=== PATIENT | female | born 1955 | race Caucasian/White ===

== ENCOUNTER 2023-12-26 13:46 | Inpatient (IN) | payer OTHER, SELFPAY ==
[2023-12-25 18:53] VITALS: BP 101/73
[2023-12-25 18:56] LABS: Glucose - Point of Care 170 mg/dl (70-99)
[2023-12-25 19:10] LABS: % Basophils 0.5 % (0-2); % Eosinophils 2.5 % (0-6); % Immature Granulocytes 0.5 % (0-0.5); % Lymphocytes 22.6 % (20.5-51.1); % Monocytes 7.4 % (1.7-9.3); % Neutrophils 66.5 % (42.2-75.2); Absolute Eosinophils 0.2 10^3/uL (0-0.7); Absolute Lymphocytes 1.4 10^3/uL (1.2-3.4); Absolute Monocytes 0.5 10^3/uL (0.1-0.6); Absolute Neutrophils 4.3 10^3/uL (1.4-6.5); Hematocrit 23.3 % (37.0-47.0); Mean Corp Hgb Conc. 34.3 g/dL (33.0-37.0); Mean Corpuscular Hgb 30.1 pg (27.0-31.0); Mean Corpuscular Volume 87.6 fL (81.0-99.0); Mean Platelet Volume 9.6 fL (7.4-10.4); Nucleated Red Blood Cells % 0 %; Platelet Count 267 10^3/uL (130-400); Red Blood Cell Count 2.66 10^6/uL (4.20-5.40); Red Cell Dist. Width 14.7 % (11.5-14.5); White Blood Cell Count 6.4 10^3/uL (4.8-10.8)
[2023-12-25 19:30] LABS: NT-proBNP 7000 pg/ml
[2023-12-25 19:35] LABS: ALT (SGPT) 31 U/L (0-35); AST (SGOT) 29 U/L (14-36); Albumin 4.4 g/dl (3.5-5.0); Alkaline Phosphatase 72 U/L (38-126); Blood Urea Nitrogen 57 mg/dl (7-17); Calcium 9.7 mg/dl (8.4-10.2); Carbon Dioxide 21 mmol/L (22-30); Chloride 104 mmol/L (98-107); Glucose 158 mg/dl (70-99); Potassium 4.7 mmol/L (3.5-5.1); Sodium 140 mmol/L (135-145); Total Bilirubin 0.2 mg/dl (0.2-1.3); Total Protein 6.9 g/dl (6.3-8.2); eGFR 45.35
[2023-12-25 21:09] VITALS: BP 197/64
[2023-12-25 21:14] VITALS: BP 197/64
[2023-12-25 21:19] LABS: Glucose - Point of Care 33 mg/dl (70-99)
[2023-12-25 21:20] VITALS: BMI 23.3
[2023-12-25 21:21] VITALS: BP 210/66
[2023-12-25 21:37] LABS: Glucose - Point of Care 49 mg/dl (70-99)
[2023-12-25 21:54] LABS: Glucose - Point of Care 72 mg/dl (70-99)
--- NOTE | 2023-12-25 21:55 | EDRN ---
Pt brought in by daughter for memory issues. Daughter states pt had a back injury with surgery @ [facility] in September and has been in and out of the hospital since then. Pt has been prescribed percocet and morphine extended release since then.
Daughter said the past few days pt has been confused, not remembering things, possibly not taking her medications/overtaking her medications. Pt has at times been agressive too which daughter states is not like her. Daughter thinks she may be in
withdrawl from opiates too, has not taken any today.
[2023-12-25 22:00] VITALS: BP 155/64
--- NOTE | 2023-12-25 22:17 | ED.GENMED ---
History of Present Illness
General
Chief Complaint: Change in Mental Status
Source: patient and family (Daughter)
Exam Limitations: altered mental status
Time Seen by Provider: 12/25/23 22:03
Nursing documentation reviewed up to this point in time: agreed with
History of Present Illness
History of Present Illness:
68-year-old female with confusion, intermittently. Daughter states that her blood sugars have been high. She has been to [facility] multiple times, and has been placed on Percocet and morphine. She had a spine surgery about 6 months ago. No
fevers. She has a history of coronary artery disease. All of her procedures have been at [facility]. No current records with patient.
Past History
Past History
ED Past Medical History: CAD, HTN, Hypercholesterolemia and IDDM
ED Past Surgical History: Appendectomy, Cardiac (Cardiac stents), and Orthopedic (Back surgery)
Review of Systems
Review of Systems
Allergies reviewed?: Yes
Unable to obtain full review of systems at this time due to: other (Confusion)
Other source history: family
All Other Systems: Not applicable
Constitutional: Reports no symptoms
EENT: Reports no symptoms
Musculoskeletal: Reports edema
Endocrine: Reports other (Confusion)
Phy Exam
Physical Exam
Physical Exam:
Physical Exam
General: Afebrile
Neck: supple. no meningeal signs. normal posterior pharynx
Heart: s1/s2 regular rate and rhythm, no murmur. equal radial
pulses.
HEENT: Pupils equal round reactive to light, EOMI
Lungs: no acute respiratory distress. clear bilaterally
Abdomen: normal bowel sounds. not tender. no CVAT
Neuro: alert and oriented to person and place. no focal neurological deficits cranial nerves II through XII intact
Skin: no rash
Psychiatric: well kept. interactive and cooperative
Extremities: Right lower leg edema. no calf tenderness. negative homans. good distal pulses
Course
Orders/Labs/Results
Orders:
Orders
12/25/23 19:04
BNP [NT-proBNP] Urgent
CBC/With Diff [Complete Blood Count/With Diff] Urgent
CMP [Comprehensive Metabolic Panel] Urgent
Troponin I Urgent
Comment: ADD ON
12/25/23 22:13
IV Insert/Care/Rem.- Treatment PRN
12/25/23 22:14
Add On- LAB Urgent
Tests Added?: troponin
CR Chest - 2 Views Urgent
Comment:
Reason For Exam: leg swelling, confusion, elevated bnp
12/25/23 22:22
Electrocardiogram (*1) Stat
Reason for Study: Heart Failure, Left
Electrocardiogram (*1) Urgent
Reason for Study: Fatigue / Weakness
EKG- Treatment ONCE
12/25/23 23:18
Drug Screen, Urine [Urine Drug Abuse Screen] Urgent
Date Specimen was Collected: 12/25/23
Time Specimen was Collected: 23:15
Urinalysis Reflex To Culture Urgent
Date Specimen was Collected: 12/25/23
Time Specimen was Collected: 23:15
Urine Microscopic Reflex Cult Urgent
12/26/23 00:01
CT Head W/o Iv Contrast Urgent
Reason For Exam: altered mental status
Abnormal Lab Results
12/25/23 12/25/23 12/25/23
18:55 19:04 21:17
RBC 2.66 L 10^6/uL
(4.20-5.40)
Hgb 8.0 L g/dL
(12.0-16.0)
Hct 23.3 L %
(37.0-47.0)
RDW 14.7 H %
(11.5-14.5)
Carbon Dioxide 21 L mmol/L
(22-30)
BUN 57 H mg/dl
(7-17)
Creatinine 1.3 H mg/dL
(0.6-1.0)
Glucose 158 H mg/dl
(99)
Urine Glucose
Urine Albumin (Reflex)
POC Glucose 170 H mg/dl 33 L* mg/dl
() (99)
12/25/23 12/25/23 12/25/23
21:36 22:58 23:18
RBC
Hgb
Hct
RDW
Carbon Dioxide
BUN
Creatinine
Glucose
Urine Glucose 3+ A
(Negative)
Urine Albumin (Reflex) 1+ A
(Neg - Trace)
POC Glucose 49 L* mg/dl 223 H mg/dl
() ()
12/25/23 19:04
12/25/23 19:04
Vital Signs
Initial and Last Documented VS:
Initial Vital Signs
Temp Pulse Resp BP Pulse Ox
98.2 F 80 15 101/73 98
12/25/23 18:53 12/25/23 18:53 12/25/23 18:53 12/25/23 18:53 12/25/23 18:53
Last Documented Vital Signs
Temp Pulse Resp BP Pulse Ox
98.2 F 82 16 167/56 93
12/25/23 18:53 12/26/23 00:15 12/26/23 00:15 12/26/23 00:00 12/26/23 00:15
MDM/Problems Addressed
Differential Diagnosis Includes:
CVA, drug intoxication, TAVIA
MDM/Problems Addressed:
68-year-old male with altered mental status, TAVIA, CHF. Chest x-ray and CT head no acute findings.
Chronic conditions affecting care: HTN and CAD
Acute Exacerbation and/or Progression of Chronic Illness: CAD
*Radiology
Radiology exam reviewed: radiology read reviewed (Chest x-ray no acute disease, CT head no acute finding)
*Pulse Oximetry
Patient hypoxic: no
*EKG
Interpreted by ED Provider?: Yes
EKG Intrepretation Date: 12/25/23
EKG Intrepretation Time: 22:31
Interpretation: abnormal
Comparison EKG: changes noted
Heart Rate: 77
Rate: normal
Rhythm: sinus
[place]: normal axis
Interval: normal interval
QRS Pattern: normal QRS
Ischemia: non-specific ST changes
*Cds Sales Advisor Interpretation
Rate: normal
Interpretation: normal
Heart Rate: 75
Rhythm: sinus
*Critical Care Note
Total Time (30-74mins, 75-104mins- exclusive of procedures): Not Applicable
Data Reviewed
Review of Other/Old Records Reveals: Labs (Prior labs show a mild anemia) and Records (Fall prior EKG June 2023, no T wave inversions seen)
Prescriptions/Medications Considered But Not Given:
TNK not indicated, no focal neurologic deficit, and onset of symptoms greater than 24 hours
Patient Management
Social determinants of health affecting care: Living situation, Substance abuse and Strong social support
Discussion with other providers: Hospitalist
Escalation/DeEscalation of care consider admission/obs:
Admit indicated
Update Note
Update Note:
Urine drug screen negative, although daughter states patient takes Percocet.
ED Attending Note
-
Portions of this chart may have been created with voice recognition software.� Occasional wrong word or��sound alike� substitutions may have occurred due to the inherent limitations of voice recognition software.
Discharge Plan
Departure
Patient Disposition: Admit
Date of Disposition: 12/26/23
Time of Disposition: 00:38
Admit to: Telemetry
Presentation/result/management discussed w/ accepting MD/DO: Hospitalist
Patient with high blood pressure during this ER visit?: Yes
Condition: Fair
Discharge Problem:
Acute alteration in mental status, Acute renal failure, Acute exacerbation of CHF (congestive heart failure)
Prescriptions:
No Action
atorvastatin 40 mg tablet
40 mg PO QPM
labetalol 200 mg tablet
200 mg PO BID
lisinopril 20 mg tablet
20 mg PO DAILY
clopidogrel 75 mg tablet
75 mg PO DAILY
oxycodone-acetaminophen 5-325 mg tablet
1 tab PO [id number] PRN (Reason: moderate pain)
pantoprazole 40 mg tablet,delayed release (DR/EC)
40 mg PO DAILY
hydralazine 50 mg tablet
50 mg PO BID
insulin aspart U-100 [Novolog FlexPen U-100 Insulin] 100 unit/mL (3 mL) insulin pen
0 sliding scale dose SC MEALS
insulin glargine [Lantus Solostar U-100 Insulin] 100 unit/mL (3 mL) insulin pen
5 - 6 unit SC HS
Referrals:
Hussein Jim DO [Family Provider] -
Interventions
Interventions:
*Risk Screen - Suicide Last Done: 12/25/23 18:53
*General Assessment Last Done: 12/25/23 18:53
*Neglect/Abuse Screening Last Done: 12/25/23 18:53
*ED COVID-19 Vaccine History Last Done: 12/25/23 21:14
ED- Pulmonary Assessment Last Done: 12/25/23 21:14
ED- Neurological Assessment Last Done: 12/25/23 21:14
ED- Cardiac Assessment Last Done: 12/25/23 21:14
ED Swallowing Screen Last Done: 12/25/23 21:14
Discharge Date and Time
Print Language: BELARUSIAN
--- NOTE | 2023-12-25 22:54 | EDRN ---
Daughter Chloe [phone]
Requesting hospitalist to call when admitting patient for concerns that she has.
[2023-12-25 23:00] VITALS: BP 148/55
[2023-12-25 23:00] LABS: Glucose - Point of Care 223 mg/dl (70-99)
[2023-12-25 23:01] LABS: Troponin I 0.013 ng/ml
[2023-12-25 23:30] LABS: Urine Albumin 1+ (Neg - Trace); Urine Bilirubin Negative (Negative); Urine Character Clear (Clear); Urine Color Yellow; Urine Glucose 3+ (Negative); Urine Ketone Negative (Negative); Urine Leukocyte Negative (Negative); Urine Nitrite Negative (Negative); Urine Occult Blood Negative (Negative); Urine Specific Gravity 1.015 (<1.030); Urine Urobilinogen Negative (Neg - 1+)
[2023-12-25 23:44] LABS: Amphetamines Negative (Negative); Barbiturates Negative (Negative); Benzodiazepines Negative (Negative); Buprenorphine Negative (Negative); Cocaine Negative (Negative); Marijuana Negative (Negative); Methadone Negative (Negative); Methamphetamines Negative (Negative); Opiates Negative (Negative); Phencyclidine Negative (Negative); Tricyclic Antidepressants Negative (Negative)
[2023-12-25 23:47] LABS: Urine Red Blood Cell 0-2 /HPF (0-2); Urine White Cell 0-2 /HPF (0-5)
[2023-12-26] VITALS (11 sets, daily range): BP systolic 114–178; BP diastolic 39–132; BMI 22.5
--- NOTE | 2023-12-26 02:24 | HPS.HSE ---
Family Physician
-
Family Physician: Hussein Jim
Chief Complaint
-
Confusion
History of Present Illness
Patient is a 68y F with PMH significant for chronic pain and recent admission(s) at [facility] who presents to ED for evaluation of confusion according to her daughter. History is obtained from the patient and ED staff. Patient has
been hospitalized on multiple occasions at [facility] for various reasons including enteritis, odynophagia, back pain, etc. She was noted today to be confused according to her daughter and was brought to ED for evaluation / second opinion.
Patient states that she developed R lower back and RLE pain in May of this year. She underwent lumbar spine surgery in June at [facility] but noted no improvement in her symptoms.
She has been chronically on opioids since that time.
Patient states that she took none of her medications today - though she also has difficulty recalling most of the events of earlier today.
She currently complains of R lower back pain / RLE pain.
She is aware that she was confused upon arrival here, but states that she feels improved from that perspective at present.
Patient notes that she has been using topical herbal remedies for her back pain - but no other OTC or illicit substances for pain control.
Medical History
Past Medical History
Past Medical History: Reports Other
Additional Past Medical History:
ASCVD
Hypertension
DM-II
Lumbar DDD / Radiculopathy
GERD
Past Surgical History: Reports Other
Additional Past Surgical History:
Lumbar Surgery (June 2023)
PTCA with Stent
T&A
Appendectomy
Social History
Tobacco: Smoker (Quit smoking about 2 months ago. > 40 pack years total use.)
Alcohol: Occasional (Very rare.)
Drug: None
Living: With Family
Family History
Family History: Not pertinent
Allergies / Home Medications
Allergies reflects when Allergies were last updated in [employer].
Home Medications with original date entered in [employer]
Allergy/Medication List:
Allergies
Allergy/AdvReac Type Severity Reaction Status Date / Time
gluten Allergy Unknown Verified 12/25/23 21:17
Home Medications
atorvastatin 40 mg tablet 40 mg PO QPM 12/25/23
clopidogrel 75 mg tablet 75 mg PO DAILY 12/25/23
hydralazine 50 mg tablet 50 mg PO BID 12/25/23
insulin aspart U-100 100 unit/mL (3 mL) subcutaneous pen (Novolog FlexPen U-100 Insulin aspart) 0 sliding scale dose SC MEALS 12/25/23
insulin glargine 100 unit/mL (3 mL) subcutaneous pen (Lantus Solostar U-100 Insulin) 5 - 6 unit SC HS 12/25/23
labetalol 200 mg tablet 200 mg PO BID 12/25/23
lisinopril 20 mg tablet 20 mg PO DAILY 12/25/23
oxycodone-acetaminophen 5 mg-325 mg tablet 1 tab PO [id number] PRN moderate pain 12/25/23
pantoprazole 40 mg tablet,delayed release 40 mg PO DAILY 12/25/23
Review of Systems
-
History Source: Patient
A 12 point ROS was completed and negative except as noted: Yes
Constitutional: Reports Fatigue; Denies Fever or Chills
Respiratory: Denies Cough or Trouble Breathing
Cardiac: Denies Chest Pain or Palpitations
Abdomen/GI: Reports Anorexia; Denies Abdominal Pain, Nausea, Vomiting, Diarrhea, Constipated, Bloody Stools or Black Stools
: Denies Dysuria, Frequency or Flank Pain
Musculoskeletal: Reports Edema (RLE) and Other (Back Pain / RLE Pain); Denies Joint Pain
Neurological: Denies Dizzy or Headache
Psych: Denies Depression or Anxiety
Physical Exam
Vital Signs
Vital Signs
Temp Pulse Resp BP Pulse Ox
98.2 F 86 20 167/56 96
12/25/23 18:53 12/26/23 02:00 12/26/23 02:00 12/26/23 00:00 12/26/23 02:00
Physical Exam
General: Other (68y F in mild distress due to back pain.)
HEENT: Moist mucous membranes and PERRLA
Respiratory: Clear; No Wheezes, Rales or Rhonchi
Cardiac: S1/S2 and Regular Rhythm; No Murmur
GI: Soft, Non Tender, Non Distended and Normal Bowel Sounds
Musculoskeletal: No Clubbing, No Cyanosis and Other (1-2+ pitting edema RLE. No edema on the L.)
Neuro: Awake, Alert, Oriented and Nonfocal/grossly intact
Psych: Other (Somewhat sluggish / poor recall. Appears mildly confused at least at present.)
Laboratory Results
-
12/25/23 19:04
12/25/23 19:04
Laboratory Results
Total Bilirubin 0.2 mg/dl (0.2-1.3) 12/25/23 19:04
AST 29 U/L (14-36) 12/25/23 19:04
ALT 31 U/L (0-35) 12/25/23 19:04
Alkaline Phosphatase 72 U/L (38-126) 12/25/23 19:04
Troponin I 0.013 ng/ml 12/25/23 19:04
Impression/Plan
-
A/P: Patient is a 68y F with PMH significant for ASCVD, HTN and DM-II who presents to ED for evaluation of mental status change.
Acute Confusion
- Observe overnight for further evaluation and treatment.
- ? etiology of earlier confusion - which seems to be improved per patient.
- ? med related, hypoglycemia / hyperglycemia, etc.
- No evidence of acute infectious process.
- Hold / minimize sedating meds if possible.
- Follow for continued improvement or any new / recurrent symptoms.
Lumbar DDD
Radicular Pain
- Present x months. No relief despite lumbar surgery.
- Trial of gabapentin.
- Continue oxycodone PRN.
- PT / OT evaluations.
- Check RLE US now given asymmetric edema, recent hospitalization(s), etc.
ASCVD
- Stable. No chest pain, dyspnea, etc.
- Continue clopidogrel, statin, etc.
Benign Hypertension
- Stable. Continue current med regimen with holding parameters.
DM-II
- Issues with hypoglycemia during recent admission at [facility].
- Hold basal insulin for now.
- Follow glucose and cover with SSI if needed.
- Update A1C.
Normocytic Anemia
- Hgb slightly decreased from recent values at [facility] (9.4 to 8).
- No report of black / bloody stools - though patient has been complaining of pain with swallowing.
- Heme test stools.
- Check iron studies.
- Continue PPI daily.
- GI eval if heme positive stools or persistent swallow issues, etc.
DVT Prophylaxis: Lovenox
Code Status: Full
[2023-12-26] MEDS: ROXICODONE 5 MG PO ×3 (02:33→23:36)
[2023-12-26 05:49] LABS: Hematocrit 21.1 % (37.0-47.0); Hemoglobin 7.1 g/dL (12.0-16.0); Mean Corp Hgb Conc. 33.6 g/dL (33.0-37.0); Platelet Count 190 10^3/uL (130-400); Red Blood Cell Count 2.37 10^6/uL (4.20-5.40); Red Cell Dist. Width 14.6 % (11.5-14.5); White Blood Cell Count 4.5 10^3/uL (4.8-10.8)
--- NOTE | 2023-12-26 06:35 | PTCARENOTE ---
Received pt from ED via stretcher. Patient was able to transfer to standing scale with one person assistance. AAO*3. patient is forgetful/ bed alarm in place. Patient denies chest pain or shortness of breath. All orders reviewed and acknowledged.
Plan of care discussed with patient. Patient oriented to room with call soria in reach.
[2023-12-26 07:33] LABS: Blood Urea Nitrogen 53 mg/dl (7-17); Calcium 9.2 mg/dl (8.4-10.2); Carbon Dioxide 15 mmol/L (22-30); Chloride 101 mmol/L (98-107); Estimated Creatinine Clearance 34 ml/min; Iron 92 ug/dl (37-170); Sodium 133 mmol/L (135-145); eGFR 41.49
[2023-12-26 07:34] LABS: Glucose - Point of Care > 600 mg/dl (70-99)
[2023-12-26 07:41] LABS: Percent Saturation 31 % (20-50); Total Iron Binding Capacity 290 ug/dl (265-497)
[2023-12-26] MEDS: TRANDATE 200 MG PO ×2 (07:55→20:58)
[2023-12-26] MEDS: ZESTRIL 20 MG PO (07:58)
[2023-12-26] MEDS: APRESOLINE PO ×2 (07:58→08:12)
[2023-12-26] MEDS: PROTONIX 40 MG PO (07:58)
[2023-12-26] MEDS: PLAVIX 75 MG PO (07:58)
[2023-12-26] MEDS: COLACE 100 MG PO ×2 (07:59→20:59)
[2023-12-26] MEDS: MIRALAX 17 GRAMS PO (08:00)
--- NOTE | 2023-12-26 08:10 | PTCARENOTE ---
Venous glucose 748 this morning. Pt is slightly irritable and confused. Dr Maldonado notified. Insulin drip and transfer to IMU ordered. Pt also refused her hydralazine and neurontin this morning. Dr Maldonado made aware.
[2023-12-26 08:14] LABS: Glucose 748 mg/dl (70-99)
[2023-12-26 08:35] LABS: Glycohemoglobin (HgbA1c) 7.7 % (4.0-5.6)
[2023-12-26] MEDS: NOVOLOG FLEXPEN-LOW RESISTANCE SC ×3 (08:55→17:23)
[2023-12-26] MEDS: NSS 1000 IV (08:56)
[2023-12-26] MEDS: NOVOLIN R INSULIN INFUSION 100 IV (09:04)
[2023-12-26 09:27] LABS: B-Hydroxybutyrate 4.18 mmol/L (0.02-0.27)
[2023-12-26 09:34] LABS: Blood Urea Nitrogen 52 mg/dl (7-17); Calcium 9.2 mg/dl (8.4-10.2); Estimated Creatinine Clearance 32 ml/min; Potassium 5.9 mmol/L (3.5-5.1); Sodium 134 mmol/L (135-145)
[2023-12-26 09:43] LABS: Carbon Dioxide 10 mmol/L (22-30); Chloride 100 mmol/L (98-107); Glucose 783 mg/dl (70-99)
[2023-12-26] MEDS: TYLENOL PO (09:51)
--- NOTE | 2023-12-26 10:08 | PTCARENOTE ---
Pt was transferred to IMU room 3349. Report was given to ROSY Be.
--- NOTE | 2023-12-26 10:30 | PTCARENOTE ---
Patient transported to us from . Received report via phone. Pt transported by stretcher, able to ambulate to the bed with standby assistance.
[2023-12-26 10:43] LABS: Glucose - Point of Care > 600 mg/dl (70-99)
[2023-12-26 11:42] LABS: Glucose - Point of Care 542 mg/dl (70-99)
--- NOTE | 2023-12-26 12:16 | PTCARENOTE ---
Patient transported from [facility]. Received report via phone. Pt transported via stretcher, ambulated to the bed with standby assist. Pt AAOx3, states she is forgetful about what happened overnight. Insulin gtt going per order see APR. Blood sugar Q1
hour see worklist. Normal sinus on tele. 97% on room air. Patient oriented to unit. Pt has call soria within reach.
[2023-12-26 12:47] LABS: Glucose - Point of Care 420 mg/dl (70-99)
--- NOTE | 2023-12-26 13:35 | W.PN.UPDATE ---
Update Note
Progress Note Update
Admitted early as of this morning for confusion.
Patient's this morning blood sugar was high and venous blood sugar was 748.
Patient is alert and oriented to place person, day, month in the ER. She realized she was confused at home but does not feel so now. She just feels weak and tired this morning. She also was feeling little nauseous. She has some abdominal
discomfort which is going on for 2 months.
She also complains of chronic back pain with radiation to the right leg.
Denies using any sugary stuff last night.
Checked with the [facility] system, nursing and pharmacy if she received any D50's for hypoglycemia-does not seems to have received that based on the research. Unclear if she received any by EMS.
She has associated increased anion gap with acidosis and hyper kalemia.
Check a beta hydroxybutyrate.
Suspect mild DKA with uncontrolled hyperglycemia. Start on IV fluids and IV insulin. Transferred to IMU.
[2023-12-26 13:57] LABS: Glucose - Point of Care 420 mg/dl (70-99)
--- NOTE | 2023-12-26 14:03 | PTCARENOTE ---
Glucose check Q1 hours. After 3 checks glucose is 420. Physician notified per protocol. Insulin gtt remains the same see APR.
[2023-12-26 14:21] LABS: Blood Urea Nitrogen 53 mg/dl (7-17); Calcium 9.4 mg/dl (8.4-10.2); Carbon Dioxide 21 mmol/L (22-30); Chloride 102 mmol/L (98-107); Estimated Creatinine Clearance 34 ml/min; Glucose 403 mg/dl (70-99); Sodium 134 mmol/L (135-145); eGFR 41.49
[2023-12-26 15:02] LABS: Glucose - Point of Care 400 mg/dl (70-99)
[2023-12-26 15:56] LABS: Glucose - Point of Care 284 mg/dl (70-99)
[2023-12-26 17:05] LABS: Glucose - Point of Care 212 mg/dl (70-99)
[2023-12-26] MEDS: TYLENOL 1000 MG PO ×2 (17:09→20:59)
[2023-12-26 17:26] LABS: Blood Urea Nitrogen 50 mg/dl (7-17); Calcium 9.3 mg/dl (8.4-10.2); Carbon Dioxide 22 mmol/L (22-30); Chloride 103 mmol/L (98-107); Estimated Creatinine Clearance 37 ml/min; Glucose 208 mg/dl (70-99); Potassium 4.5 mmol/L (3.5-5.1); Sodium 136 mmol/L (135-145); eGFR 45.35
[2023-12-26 17:45] LABS: Glucose - Point of Care 160 mg/dl (70-99)
[2023-12-26] MEDS: LIPITOR 40 MG PO (18:08)
[2023-12-26] MEDS: NSS IV (18:26)
--- NOTE | 2023-12-26 18:38 | PTCARENOTE ---
Patient now off Insulin gtt and has dinner. Accucheck with meal is 64. Hospitalist made aware and will recheck after patient finishes her meal. Patient is currently asymptomatic.
[2023-12-26 18:46] LABS: Glucose - Point of Care 64 mg/dl (70-99)
[2023-12-26] MEDS: NOVOLOG FLEXPEN SC (18:49)
[2023-12-26 19:10] LABS: Glucose - Point of Care 78 mg/dl (70-99)
[2023-12-26 20:56] LABS: Glucose - Point of Care 37 mg/dl (70-99)
[2023-12-26] MEDS: APRESOLINE 50 MG PO (20:58)
[2023-12-26 21:17] LABS: Glucose - Point of Care 77 mg/dl (70-99)
[2023-12-26] MEDS: SENOKOT 17.2 MG PO (22:51)
[2023-12-26] MEDS: LANTUS 0.1 UNITS SC (22:54)
[2023-12-26 23:07] LABS: Glucose - Point of Care 242 mg/dl (70-99)
[2023-12-27] VITALS (22 sets, daily range): BP systolic 121–213; BP diastolic 44–83
[2023-12-27 02:14] LABS: Glucose - Point of Care 405 mg/dl (70-99)
[2023-12-27 02:41] LABS: Glucose 383 mg/dl (70-99)
[2023-12-27] MEDS: NOVOLOG FLEXPEN 10 UNITS SC (03:21)
--- NOTE | 2023-12-27 03:33 | PTCARENOTE ---
Hypoglycemic event ~ 2044; Accucheck = 37, Pt given apple juice, 15 minute recheck BS = 77; Provided with nancy crackers to prevent further episodes of hypoglycemia. 2 hr recheck = 242, 10u Lantus given at that time per 299 recheck RR high;
Stat glucose drawn, result = 383; Provider contacted for coverage. Order received for 10u humalog. Will continue to monitor and assess.
[2023-12-27] MEDS: TRANDATE 100 MG PO (05:17)
[2023-12-27 05:38] LABS: Glucose - Point of Care 265 mg/dl (70-99)
[2023-12-27 05:56] LABS: Hematocrit 21.7 % (37.0-47.0); Hemoglobin 7.4 g/dL (12.0-16.0); Mean Corp Hgb Conc. 34.1 g/dL (33.0-37.0); Mean Corpuscular Volume 90.8 fL (81.0-99.0); Mean Platelet Volume 10.3 fL (7.4-10.4); Platelet Count 207 10^3/uL (130-400); Red Blood Cell Count 2.39 10^6/uL (4.20-5.40); Red Cell Dist. Width 14.2 % (11.5-14.5); White Blood Cell Count 6.5 10^3/uL (4.8-10.8)
[2023-12-27 06:34] LABS: Blood Urea Nitrogen 40 mg/dl (7-17); Calcium 9.2 mg/dl (8.4-10.2); Carbon Dioxide 20 mmol/L (22-30); Chloride 104 mmol/L (98-107); Estimated Creatinine Clearance 37 ml/min; Glucose 258 mg/dl (70-99); Potassium 4.5 mmol/L (3.5-5.1); Sodium 138 mmol/L (135-145); eGFR 45.35
[2023-12-27] MEDS: NOVOLOG FLEXPEN-LOW RESISTANCE 3 UNITS SC (08:07)
[2023-12-27] MEDS: NOVOLOG FLEXPEN 3 UNITS SC ×3 (08:08→17:10)
[2023-12-27] MEDS: TYLENOL 1000 MG PO ×3 (08:39→21:44)
[2023-12-27] MEDS: PROTONIX 40 MG PO (08:39)
[2023-12-27] MEDS: COLACE 100 MG PO ×2 (08:40→19:58)
[2023-12-27] MEDS: PLAVIX 75 MG PO (08:40)
[2023-12-27] MEDS: MIRALAX 17 GRAMS PO (08:40)
[2023-12-27] MEDS: APRESOLINE 50 MG PO ×2 (08:47→18:14)
[2023-12-27] MEDS: TRANDATE 200 MG PO ×2 (08:47→18:13)
[2023-12-27] MEDS: ZESTRIL 20 MG PO (08:47)
--- NOTE | 2023-12-27 08:50 | PTCARENOTE ---
patient given 100 mg oral trandate at 4am for hypertension. 0845 automatic b/p 213/56 left arm, 210/60 manual b/p right arm. morning scheduled anti-hypertensives given (trandate 200mg, lisinopril 20 mg, apresoline 50 mg). Continuing to monitor
[2023-12-27] MEDS: ROXICODONE 5 MG PO ×3 (09:58→22:16)
--- NOTE | 2023-12-27 10:15 | W.PN.HOSP.TC ---
Today's Communication/Plan
-
Check MRI of the brain
Optimize blood sugars and blood pressure
Follow labs for anemia
Heme test stools
Obtained most recent creatinine from PCP
Assessment / Plan
Assessment / Plan
A/P: Patient is a 68y F with PMH significant for ASCVD, HTN and DM-II who presents to ED for evaluation of mental status change.
Acute Confusion With recent personality changes
With hypoglycemia and hyperglycemia and uncontrolled hypertension suspect may be encephalopathy but she has risk factors for strokes. CT of the head shows no evidence of acute bleeding or infarct but we will get an MRI to rule out neurological
events to account for changes.
Optimize her blood sugars and blood pressure and follow her cognition
- No evidence of acute infectious process.
- Hold / minimize sedating meds if possible.
- Follow for continued improvement or any new / recurrent symptoms.
DM-I .
Hyperglycemia with mild DKA
- Issues with hypoglycemia during recent admission at [facility].
- hemoglobin A1c 7.7 . She uses Lantus at night and recently using 6 units. She also uses a sliding scale insulin. Lately she has seen high blood sugars and with the loss of Dexcom she is using fingersticks. There is a concern by the daughter
if mom is mismanaging her insulin administration-she think she might have overdone it sometimes.
- resolved acidosis.Restart Lantus and mealtime insulin. Consult DM nurse practitioner
Benign Hypertension With hypertensive urgency
-Patient resumed on her hydralazine, lisinopril, and labetalol. if needed will increase labetalol to 3 times daily
Normocytic Anemia
- Hgb slightly decreased from recent values at [facility] (9.4 to 8).
- Heme test stools.
- Normal iron studies.
- Check ferritin, reticulocyte count, B12 and folate.
- Continue PPI daily.
- GI eval if heme positive stools or persistent swallow issues, etc.
Renal Insufficiency-suspect chronic kidney disease stage III
Obtain all information
Lumbar DDD
Radicular Pain
- Present x months. No relief despite lumbar surgery.
- Trial of gabapentin.
- Continue oxycodone PRN.
- PT / OT evaluations.
- Check RLE US now given asymmetric edema, recent hospitalization(s), etc.
ASCVD
- Stable. No chest pain, dyspnea, etc.
- Continue clopidogrel, statin, etc.
DVT Prophylaxis: Lovenox
Code Status: Full
Total time spent on today's encounter was 52 minutes which included time spent in counseling the patient regarding diagnosis and treatment plan as listed above, goals of care, and symptom management. Case was discussed with nursing staff . All labs
and imaging personally reviewed by me. Remainder the time spent in detailed review of previous records, lab data, imaging, and other medical provider documentation.
Anticipated Discharge: 24 - 48 hours
Subjective/Interval History
-
Date of Service: December 27, 2023
This morning patient is alert and oriented to place, person, day, month in the ER.
She is voicing no specific complaints. Her nausea has resolved.
She also recognize last 2 weeks she has been forgetful and may be a bit confused. She has realized her Dexcom was not working. She got a new 1 but she has not paired with the sensor.
She is not sure whether the blood sugars were low but she definitely seen hypoglycemia issues.
She is type I diabetic since age of 16 years of age.
Her blood pressure was high this morning she says it has been an issue to her.
Denies any prior history of strokes.
Chronic back pain issues and a recent back surgery which has not helped her much she says. She is still gets back pain and sometimes radiation to right leg.
DW daughter Chloe yesterday -
She has been forgetful for the last 4 months but the last 2 weeks was the worst. Not only forgetfulness but also has personality in general has changed in the last 2 weeks according to the daughter.
Objective Data
-
Labs:
Laboratory Results
12/27/23 12/27/23
02:14 05:32
WBC 6.5
Hgb 7.4 L
Hct 21.7 L
Plt Count 207
Sodium 138
Potassium 4.5
Chloride 104
Carbon Dioxide 20 L
BUN 40 H
Creatinine 1.3 H
Glucose 383 H 258 H
Calcium 9.2
Vital Signs:
Vital Signs
Temp Pulse Resp BP Pulse Ox
98.1 F 70 16 181/55 98
12/27/23 03:37 12/27/23 09:55 12/27/23 09:55 12/27/23 09:55 12/27/23 09:55
I&O
12/26/23 12/27/23 12/28/23
07:59 06:59 06:59
Intake Total
Balance
Review of Systems
-
Constitutional: Denies Fever
EENT: Denies Sore Throat
Respiratory: Denies Trouble Breathing
Cardiac: Denies Chest Pain
Abdomen/GI: Denies Abdominal Pain, Nausea, Vomiting or Diarrhea
Genitourinary: Denies Dysuria
Neuro: Denies Dizzy or Headache
Physical Exam
-
General: Comfortable
Respiratory: Non Labored Respirations; Negative Accessory Resp Muscle Use
Cardiac: Regular Rhythm and S1/S2
GI: Soft, Nontender, Nondistended and Normal Bowel Sounds
Neuro: AO x 3 and No Motor Deficits; Negative Tremors, Slurred Speech or Facial Droop
Psych: Calm; Negative Confused or Agitated
Data Reviewed
-
Labs: Labs Reviewed by me
[2023-12-27 10:46] LABS: Reticulocyte Count 1.5 % (0.4-2.8)
[2023-12-27 11:47] LABS: Glucose - Point of Care 352 mg/dl (70-99)
[2023-12-27] MEDS: APRESOLINE 5 MG IV ×2 (11:52→23:21)
[2023-12-27] MEDS: NOVOLOG FLEXPEN-LOW RESISTANCE 5 UNITS SC (11:53)
[2023-12-27 12:40] LABS: Folate 15.4 ng/ml (2.76-20); Vitamin B12 538 pg/ml (239-931)
--- NOTE | 2023-12-27 13:46 | PTCARENOTE ---
pt pressed call soria to report 'I don't feel right'. Difficulty expressing exact symptoms but eventually stating she feels the beginnings of a headache and agrees to feeling 'not myself'. Neuro check intact. B/p 168/56. Heart rate 70's; sinus
rhythm. Blood glucose 371 by accucheck after eating lunch; covered with 8 units novolog prior to eating lunch. Tylenol given. Continuing to monitor.
[2023-12-27 13:56] LABS: Glucose - Point of Care 371 mg/dl (70-99)
--- NOTE | 2023-12-27 16:35 | PTCARENOTE ---
patient child care assistant reporting that the patient reported feeling dizzy after ambulating back from the bathroom. pt again stating 'I don't feel right in here' indicating her abdomen when I went into the room to assess her after returning to bed. She is
unable to be specific about this but agrees to mild tenderness on palpation. Normoactive bowel sounds; abdomen is soft. She reports a formed brown bm this morning in the toilet. Discussed with Dr. Maldonado. Orders to heme test going forward. She is
asking for pain medication. Discussed with patient that we will hold off for now, given her dizziness. B/p is stable; sinus rhythm on air sampling and monitoring. continuing to monitor
[2023-12-27] MEDS: NOVOLOG FLEXPEN-LOW RESISTANCE 4 UNITS SC (17:10)
[2023-12-27] MEDS: LIPITOR 40 MG PO (17:11)
[2023-12-27 17:27] LABS: Glucose - Point of Care 319 mg/dl (70-99)
--- NOTE | 2023-12-27 18:16 | PTCARENOTE ---
b/p 192/57. 8pm scheduled labetolol and hydralazine given early. continuing to monitor
--- NOTE | 2023-12-27 20:06 | PTCARENOTE ---
Vital signs from [id number] captured by ROSY VEGA. Pt under the care of previous shift RN during this time, unable to verify accuracy.
[2023-12-27 21:09] LABS: Glucose - Point of Care 178 mg/dl (70-99)
[2023-12-27] MEDS: SENOKOT 17.2 MG PO (21:44)
[2023-12-27] MEDS: LANTUS 0.1 UNITS SC (21:48)
[2023-12-27 22:00] LABS: Glucose - Point of Care 200 mg/dl (70-99)
[2023-12-27] MEDS: FLUSH (NSS) 2 FLUSH IV (23:07)
--- NOTE | 2023-12-27 23:56 | PTCARENOTE ---
Assumed care of IMU pt 1845. Pt in bed, AAO3 but forgetful with poor short term memory. Pt reports chronic R sided lower back pain, PRN medication as able. Lung sounds are clear throughout, decreased in b/l base, pox 96-97% on room air, denies
SOB/cough. Telemetry rhythm reveals SR, HR 70's. RLE with pitting +1 edema and slight tenderness to touch at ankle, no edema noted in LLE; palpable peripheral pulses, knee high SCDs in use. +BS, abdomen soft round, poor appetite reported (chronic
per pt), pt reports indigestion x last several days. Will heme check stool when able. Assist x1 to BSC, voiding yellow urine. Skin intact. Safe environment maintained, bed alarm on and monitoring, call soria within reach.
TigerText to House GOSIA Meza to discuss pt's hypertension. 1x order for Hydralazine IV ordered. Will monitor for effect.
[2023-12-28] VITALS (18 sets, daily range): BP systolic 133–208; BP diastolic 41–89; PULSE 69–71; O2SAT 95–97
[2023-12-28] MEDS: FLUSH (NSS) 2 FLUSH IV (01:38)
[2023-12-28] MEDS: ZOFRAN 4 MG IV ×2 (01:38→18:05)
[2023-12-28 01:46] LABS: Glucose - Point of Care 231 mg/dl (70-99)
[2023-12-28 05:21] LABS: Hematocrit 22.9 % (37.0-47.0); Hemoglobin 7.9 g/dL (12.0-16.0); Mean Corp Hgb Conc. 34.5 g/dL (33.0-37.0); Mean Corpuscular Hgb 30.2 pg (27.0-31.0); Mean Corpuscular Volume 87.4 fL (81.0-99.0); Mean Platelet Volume 10.3 fL (7.4-10.4); Platelet Count 228 10^3/uL (130-400); Red Blood Cell Count 2.62 10^6/uL (4.20-5.40); Red Cell Dist. Width 14.4 % (11.5-14.5); White Blood Cell Count 4.7 10^3/uL (4.8-10.8)
[2023-12-28 05:44] LABS: Blood Urea Nitrogen 35 mg/dl (7-17); Calcium 9.4 mg/dl (8.4-10.2); Carbon Dioxide 24 mmol/L (22-30); Chloride 104 mmol/L (98-107); Estimated Creatinine Clearance 40 ml/min; Glucose 186 mg/dl (70-99); Potassium 4.9 mmol/L (3.5-5.1); Sodium 139 mmol/L (135-145); eGFR 49.92
--- NOTE | 2023-12-28 07:02 | PN.DE.MGMTRT ---
Insulin Management
- -
12/28/2023: Diabetes management Consult
68 year old female with PMH: ASCVD, CHF, HTN and DM-II who presents to ED for evaluation of Acute mental status change.
Pt states was taking Lantus 5 units @ HS and SS NovoLog prior to admission. A1C 7.7%, Cr 1.2, eGFR 49.92. She has a CGM- Dexcom 6.
Pt is a poor historian, she denies experiencing hypoglycemia, tho she is noted for episodes of hypoglycemia per chart review. Her glucose dropped to 33 on 12/24 @21:17 and again to 37 on 12/25 @20:44, she received treatment for both events leading to
rebound Hyperglycemia. No further episode of hypoglycemia in last 2 days.
Pt is awake, alert, oriented sitting up in chair eating breakfast, Right eye pupil > left. Able to discuss diabetes mgt.
12/26 premeal glucose 178 to 371, requiring 3-5 additional corrective insulin.
pt received 10 units of Lantus @ HS, glucose trended up to 231 @ 1:30AM, and FBG 186(V) this AM
Will increase Lantus to 15 units and AC NovoLog to 8 units. Cont moderate corrective with meals.
Change diet to 1800 des. Will follow and make further insulin adjustments if needed.
Diabetes History
- -
Type of Diabetes: 2 requiring insulin
Pre-Admission Diabetes Regimen
12/28/23
05:07
Creatinine 1.2 H
Lab Results
Hemoglobin A1c 7.7 % (4.0-5.6) H 12/26/23 05:32
Insulin Pump Settings
IP Diabetes Regimen
12/27/23 12/27/23 12/27/23
11:34 13:44 17:08
Glucose
POC Glucose 352 H 371 H 319 H
12/27/23 12/27/23 12/28/23
20:57 21:47 01:34
Glucose
POC Glucose 178 H 200 H 231 H
12/28/23
05:07
Glucose 186 H
POC Glucose
Patient Education
[2023-12-28] MEDS: ROXICODONE 5 MG PO ×3 (08:06→23:03)
[2023-12-28] MEDS: ZESTRIL 20 MG PO (08:07)
[2023-12-28] MEDS: TRANDATE 200 MG PO ×3 (08:07→21:13)
[2023-12-28] MEDS: PROTONIX 40 MG PO (08:07)
[2023-12-28] MEDS: APRESOLINE 50 MG PO ×3 (08:07→21:10)
[2023-12-28] MEDS: COLACE 100 MG PO ×2 (08:08→21:10)
[2023-12-28] MEDS: TYLENOL 1000 MG PO ×3 (08:08→21:10)
[2023-12-28] MEDS: PLAVIX 75 MG PO (08:08)
[2023-12-28] MEDS: MIRALAX 17 GRAMS PO (08:08)
[2023-12-28 08:09] LABS: Glucose - Point of Care 258 mg/dl (70-99)
[2023-12-28] MEDS: NOVOLOG FLEXPEN-LOW RESISTANCE 3 UNITS SC (08:12)
[2023-12-28] MEDS: NOVOLOG FLEXPEN 3 UNITS SC (08:12)
--- NOTE | 2023-12-28 09:45 | PTOTSP ---
pt currently demonstrates ability to complete simple ADLs, functional transfers, ambulation with supervision to no assistance. pt and director fixed income to periods of confusion, with no recollection. recommend outpatient neuro workup if applicable. no acute
OT needs identified at this time, will sign off.
[2023-12-28 11:01] LABS: Glucose - Point of Care > 600 mg/dl (70-99)
[2023-12-28 11:54] LABS: Glucose 519 mg/dl (70-99)
[2023-12-28] MEDS: NOVOLOG FLEXPEN 10 UNITS SC (12:41)
[2023-12-28] MEDS: NOVOLOG FLEXPEN 8 UNITS SC ×2 (12:42→17:19)
--- NOTE | 2023-12-28 12:49 | PTCARENOTE ---
Patient stated to RN 'can you check my sugar, I just don't feel right'. Patient unable to explain to RN what 'doesn't feel right'. Blood sugar read as >600. Stat glucose checked per protocol with a result of 519. Dr. Gary and Bernice Correia [employer]OID
made aware. Insulin ordered by Bernice Correia NP. Insulin administered per MAR. Care ongoing at this time.
[2023-12-28] MEDS: NOVOLOG FLEXPEN-LOW RESISTANCE SC (12:50)
[2023-12-28] MEDS: APRESOLINE 10 MG IV (13:01)
--- NOTE | 2023-12-28 13:07 | PTCARENOTE ---
Patients BP on R arm was 208/57. BP rechecked on L arm and it was 204/66. HR in 60's. Patient asymptomatic at this time. Dr. Gary made aware. Hydralazine ordered. Hydralazine administered per APR. Care ongoing at this time.
--- NOTE | 2023-12-28 14:09 | PTCARENOTE ---
BP rechecked 1 hour after administration of hydralazine. BP on L arm 169/46 MAP of 81 and HR 73. Care ongoing at this time.
[2023-12-28 14:59] LABS: Glucose - Point of Care 342 mg/dl (70-99)
--- NOTE | 2023-12-28 15:13 | W.PN.HOSP.TC ---
Today's Communication/Plan
-
vbg, ammonia level, blood cultures
Neuro consult for possible LP, other etiologies of AMS
Diabetic control
Hydral to TID
Assessment / Plan
Assessment / Plan
A/P: Patient is a 68y F with PMH significant for ASCVD, HTN and DM-II who presents to ED for evaluation of mental status change.
Acute Metabolic Encephalopathy With recent personality changes
-� Patient has had mental status changes since spinal surgery as per family
-all metabolic workup is negative
� Has not spiked any temperature
� Neurology consulted for possible assistance, may need LP
- No evidence of acute infectious process.
- Hold / minimize sedating meds if possible.
- Follow for continued improvement or any new / recurrent symptoms.
-Blood cultures
-f/u ammonia level
DM-I .
Hyperglycemia with mild DKA
- Issues with hypoglycemia during recent admission at [facility].
- hemoglobin A1c 7.7 .
- resolved acidosis.Restart Lantus and mealtime insulin.
Consult DM nurse practitioner
Benign Hypertension With hypertensive urgency
-Patient resumed on her hydralazine, lisinopril, and labetalol.
labetolol changed to TID
-change hydral to TID
Normocytic Anemia
- Hgb slightly decreased from recent values at [facility] (9.4 to 8).
- Heme test stools.
- Normal iron studies.
- Check ferritin, reticulocyte count, B12 and folate.
- Continue PPI daily.
- GI eval if heme positive stools or persistent swallow issues, etc.
Renal Insufficiency-suspect chronic kidney disease stage III
Obtain all information
Lumbar DDD
Radicular Pain
- Present x months. No relief despite lumbar surgery.
- Trial of gabapentin.
- Continue oxycodone PRN.
- PT / OT evaluations.
- no dvt on LE edema
ASCVD
- Stable. No chest pain, dyspnea, etc.
- Continue clopidogrel, statin, etc.
DVT Prophylaxis: Lovenox
Code Status: Full
Total time spent on today's encounter was 51 minutes which included time spent in counseling the patient regarding diagnosis and treatment plan as listed above, goals of care, and symptom management. Case was discussed with nursing staff . All labs
and imaging personally reviewed by me. Remainder the time spent in detailed review of previous records, lab data, imaging, and other medical provider documentation.
Anticipated Discharge: > 48 hours
Subjective/Interval History
-
Date of Service: December 28, 2023
Alert and orient x 3, MRI unremarkable for acute findings
Objective Data
-
Labs:
Laboratory Results
12/28/23 12/28/23
05:07 11:28
WBC 4.7 L
Hgb 7.9 L
Hct 22.9 L
Plt Count 228
Sodium 139
Potassium 4.9
Chloride 104
Carbon Dioxide 24
BUN 35 H
Creatinine 1.2 H
Glucose 186 H 519 H*
Calcium 9.4
Vital Signs:
Vital Signs
Temp Pulse Resp BP Pulse Ox
97.9 F 75 22 169/46 98
12/28/23 11:05 12/28/23 14:07 12/28/23 14:07 12/28/23 14:07 12/28/23 14:07
I&O
12/27/23 12/28/23 12/29/23
06:59 06:59 06:59
Intake Total 240 / 240
Output Total 1375 / 1375 500 / 500
Balance -1135 / -1135 -500 / -500
Review of Systems
-
Constitutional: Denies Fever
EENT: Denies Sore Throat
Respiratory: Denies Trouble Breathing
Cardiac: Denies Chest Pain
Abdomen/GI: Denies Abdominal Pain, Nausea, Vomiting or Diarrhea
Genitourinary: Denies Dysuria
Neuro: Denies Dizzy or Headache
Physical Exam
-
General: Comfortable
Respiratory: Non Labored Respirations; Negative Accessory Resp Muscle Use
Cardiac: Regular Rhythm and S1/S2
GI: Soft, Nontender, Nondistended and Normal Bowel Sounds
Neuro: AO x 3 and No Motor Deficits; Negative Tremors, Slurred Speech or Facial Droop
Psych: Calm; Negative Confused or Agitated
Data Reviewed
-
CT Scan: Image personally visualized and interpreted
MRI: Image personally visualized and interpreted
Labs: Labs Reviewed by me
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
[2023-12-28] MEDS: HEPARIN 5000 UNITS SC ×2 (16:06→22:55)
--- NOTE | 2023-12-28 16:17 | VNURNOTE ---
Home Health Liaison spoke with daughter Chloe to discuss [facility] nurse/therapy, visits, schedule and homebound status. Daughter is agreeable and understands that visits at home will be 2-3 x per week to assess and teach medical management. Emailed
caregiver list to daughter per her request. She is aware that [facility] will contact them for start of care in 1-2 days after discharge from .
[facility] referral completed in [facility] Port.
[2023-12-28 16:32] LABS: Glucose - Point of Care 204 mg/dl (70-99)
[2023-12-28 17:09] LABS: Venous Blood Gas B.E. 3.3 mmol/L (-4 to +4); Venous Blood Gas HCO3 27.8 mmol/L (22-27); Venous Blood Gas O2 Sat % 99.6 %; Venous Blood Gas pCO2 41 mmHg (35-48); Venous Blood Gas pH 7.44 (7.32-7.43); Venous Blood Gas pO2 231 mmHg (30-50)
[2023-12-28] MEDS: NOVOLOG FLEXPEN-LOW RESISTANCE 2 UNITS SC (17:20)
[2023-12-28 17:22] LABS: Ammonia 11 umol/L (9-30)
[2023-12-28] MEDS: LIPITOR 40 MG PO (17:29)
--- NOTE | 2023-12-28 18:14 | PTCARENOTE ---
Patient AOx3, forgetful throughout shift. Bed alarm and chair alarm on and audible. Pain medication from chronic R side lower back pain provided per APR. Patient c/o of nausea. Zofran provided per APR. NSR on tele. Patient on RA with SpO2 greater
than 92%. Trace/+1 edema to RLE. Palpable dorsalis pulses. Assist x1 when ambulating. Call soria within reach, bed in lowest position, and wheels locked.
[2023-12-28] MEDS: SENOKOT 17.2 MG PO (21:10)
[2023-12-28 21:42] LABS: Glucose - Point of Care 49 mg/dl (70-99)
[2023-12-28 22:09] LABS: Glucose - Point of Care 58 mg/dl (70-99)
[2023-12-28 22:32] LABS: Glucose - Point of Care 92 mg/dl (70-99)
[2023-12-29] VITALS (30 sets, daily range): BP systolic 93–205; BP diastolic 30–122
[2023-12-29] LABS: Glucose - Point of Care 210 mg/dl (70-99)
--- NOTE | 2023-12-29 | PTCARENOTE ---
Received pt from day shift. Pt aaox3, but forgetful at times, bed alarm on. VSS, ALEXANDRA medications given. Pt c/o of back pain rated 8/10, PRN pain medication given (see MAR). Reached out to FEED HANDLER due to blood sugar of 49 at 2130, and confirmed to hold
night time Lantus. Hypoglycemia protocol completed (see worklist). Pt resting in bed with call soria in reach.
[2023-12-29] MEDS: APRESOLINE 10 MG IV (02:04)
[2023-12-29 02:20] LABS: Glucose - Point of Care 274 mg/dl (70-99)
[2023-12-29 05:28] LABS: Glucose - Point of Care 400 mg/dl (70-99)
[2023-12-29] MEDS: ROXICODONE 5 MG PO ×3 (05:51→19:48)
[2023-12-29 05:54] LABS: Hematocrit 23.2 % (37.0-47.0); Hemoglobin 7.8 g/dL (12.0-16.0); Mean Corp Hgb Conc. 33.6 g/dL (33.0-37.0); Mean Corpuscular Hgb 30.8 pg (27.0-31.0); Mean Corpuscular Volume 91.7 fL (81.0-99.0); Mean Platelet Volume 10.6 fL (7.4-10.4); Platelet Count 180 10^3/uL (130-400); Red Blood Cell Count 2.53 10^6/uL (4.20-5.40); Red Cell Dist. Width 14.1 % (11.5-14.5); White Blood Cell Count 3.6 10^3/uL (4.8-10.8)
[2023-12-29] MEDS: NOVOLOG FLEXPEN 10 UNITS SC (05:59)
[2023-12-29] MEDS: LANTUS 0.05 UNITS SC (06:00)
[2023-12-29 06:04] LABS: ALT (SGPT) 41 U/L (0-35); AST (SGOT) 69 U/L (14-36); Albumin 3.4 g/dl (3.5-5.0); Alkaline Phosphatase 82 U/L (38-126); Blood Urea Nitrogen 39 mg/dl (7-17); Calcium 9.1 mg/dl (8.4-10.2); Carbon Dioxide 23 mmol/L (22-30); Chloride 100 mmol/L (98-107); Estimated Creatinine Clearance 32 ml/min; Glucose 364 mg/dl (70-99); Potassium 5.7 mmol/L (3.5-5.1); Sodium 134 mmol/L (135-145); Total Bilirubin 0.2 mg/dl (0.2-1.3); Total Protein 5.7 g/dl (6.3-8.2)
--- NOTE | 2023-12-29 06:30 | PTCARENOTE ---
Pt stated that she did 'not feel right' and requested her blood sugar be taken. Blood sugar result of 400. Reached out to GOSIA Justice. Medications ordered and administer (see MAR). Pt complaining of 8/10 pain on her right side, admin PRN pain med.
(see MAR). Morning K was 5.7, FRONT END WHEEL LOADER OPERATOR notified. Awaiting orders.
[2023-12-29 06:44] LABS: Glucose - Point of Care 401 mg/dl (70-99)
[2023-12-29 07:34] LABS: Glucose 319 mg/dl (70-99)
--- NOTE | 2023-12-29 08:30 | CON.NEURO4 ---
Addendum entered and electronically signed by Odin Betancur MD 12/29/23 10:46:
Studies reviewed.
I have personally examined the patient. I reviewed and agree with the SUPPLIER RELATIONSHIP DIRECTOR's Note.
My addenda:
Awake, alert, interactive. No acute distress.
Speech intact. Mildly inattentive incorrectly indicates that the county is [place].
Follows 2-step requests w/ difficulty. No tremor.
Extra-ocular movements grossly intact.
Facial movements full and symmetric. Hearing intact to normal conversational volume.
Normal UE movements bilaterally.
Neck: full ROM.
Chest: no dyspnea
Heart: no JVD
Ext: (-) Clubbing, (-) Cyanosis, (-) Edema
IMPRESSIONS/RECOMMENDATIONS:
Abrupt onset of change in mental status
Differential diagnosis is broad, however, underlying cognitive decline is most probable
Provide thiamine to ensure that deficiency is remediated
Check blood work for potential metabolic cause
Outpatient neuropsychological evaluation
No indication at this time for the use of antiplatelet or other therapies
D/W patient
Will continue to follow as needed.
Original Note:
Consultation - Neurology 4
-
CONSULTING PHYSICIAN: Odin Betancur MD
REFERRING PHYSICIAN: Hospitalists/Dr. Gary
DICTATED BY: BETO Palafox
DATE/TIME OF REQUEST: 12/28/23
DATE/TIME OF CONSULTATION: 12/29/23
Reason for Consultation: Altered mental status
History of Present Illness:
This is a 68-year-old left-handed female who has presented to the hospital on 12/25/23 with report of intermittent confusion. Patient reports that she injured her back at work in May 2023 and had a back surgery on L4-L5 in June 2023 at [facility]. Since then she has still had significant right lower back/posterior right leg pain and has been taking Percocet as needed. Her daughter is unsure if she has been taking her medications as ordered including her insulin. On arrival
in the ER, CT head was obtained and is negative for any acute abnormalities. Blood sugar hours after arrival went up to 748. GFR today is 38. Blood pressure has been uncontrolled up to 210/66. MRI brain was obtained on 12/28/23 and is negative for
any acute abnormalities. Patient reports that she mentally returned to her baseline yesterday (12/28/23), but on current evaluation conversation is still intermittently confused. She denies any headache, dizziness, vision changes, speech/swallow
difficulty, numbness, weakness, chest pain, palpitations, and shortness of breath.
Past Medical History: HTN, NIDDM requiring insulin, CAD, GERD, lumbar DDD/radiculopathy, chronic back pain
Surgical History: Right eye cataract removal, PTCA with stent, T&A, appendectomy,
Family History: Reviewed and noncontributory.
Social History: Former smoker, quit one month ago. Rare alcohol. Denies illicit drug use.
Allergies: Gluten.
Home Medications: See below.
Review of Symptoms:
Patient denies any fever, headache, chest pain, shortness of breath, GI or symptoms.
�Per the HPI.�All systems are reviewed negative except above.
Physical Exam:
The patient is afebrile, abdomen is nondistended, breathing is unlabored, skin is warm and dry, no edema.
Neurologic Examination:
The patient is awake, alert and oriented x 3. Some confusion with complex holidays, unable to state the county we are in currently. Able to name some future/recent holidays but not all. She is able to follow one-step commands and answer questions
appropriately. Moderate difficulty with two-step commands. There is no aphasia or dysarthria. On cranial nerve assessment, left pupil is 3 mm, round and reactive to light and accommodation, right pupil is irregular and sluggish to light and
accommodation. Visual butts are full. Extraocular movements are intact. Facial sensations are intact and bilaterally symmetrical, there is no facial asymmetry. Hearing is intact bilaterally to normal conversation volume. Tongue palate and uvula are
midline. Sternocleidomastoid strengths are full bilaterally. Motor strengths are 5/5 bilateral upper and lower extremities on medical research [place] scale. There is no drift or involuntary movement noted. Deep tendon reflexes are 2+ bilateral
upper and lower extremities and Babinski is absent bilaterally. There was no extinction noted on double simultaneous stimulation. Coordination is intact by finger to nose bilaterally.
Lab Results: See below.
1. MRI Brain 12/28/23: No significant intracranial abnormality. Minor chronic microvascular senescent changes.
Differentials for the patient's presentation include:
1. Multifactorial encephalopathy; likely due to narcotic usage, metabolic disturbances, hypertensive urgency, TAVIA, and cannot entirely exclude underlying cognitive deficits at baseline.
2. MRI brain negative for vascular/structural abnormalities.
3. Low concern for COMMODITIES REQUIREMENTS ANALYST infection producing symptoms.
Patient has the following risk factors for their symptoms: Elevated blood glucose, TAVIA, uncontrolled hypertension
Recommendations:
-Do not see a role for further neurological imaging at this point.
-Patient may benefit from outpatient neuropsychological testing.
-TSH pending.
-Provide thiamine replacement as ordered.
-Goal normotension.
-Goal normoglycemia.
-Encourage appropriate sleep/wake cycles, minimize nighttime disturbances/daytime napping, encourage daytime light exposure.
-Would avoid narcotics and COMMODITIES REQUIREMENTS ANALYST depressing medications as much as possible.
-ST evaluation for cognitive purposes.
-DVT prophylaxis.
-Patient should follow-up with Neurology as an outpatient, may see the SUPPLIER RELATIONSHIP DIRECTOR or one of the physicians.
Discussed patient care with: Dr. Betancur, the patient
Vital Signs and Labs
-
Vital Signs and Labs:
Vital Signs
Temp Pulse Resp BP Pulse Ox
97.8 F 70 25 177/60 96
12/29/23 07:10 12/29/23 09:15 12/29/23 06:00 12/29/23 09:15 12/29/23 06:00
Lab Results
12/29/23 04:59
12/29/23 07:09
Sodium 134 mmol/L (135-145) L 12/29/23 04:59
Potassium 5.7 mmol/L (3.5-5.1) H 12/29/23 04:59
BUN 39 mg/dl (7-17) H 12/29/23 04:59
Glucose 319 mg/dl (70-99) H 12/29/23 07:09
Calcium 9.1 mg/dl (8.4-10.2) 12/29/23 04:59
Qib-B-[id number] Pept 7000 pg/ml 12/25/23 19:04
Vitamin B12 538 pg/ml (239-931) 12/27/23 05:32
Ur Buprenorphine Negative (Negative) 12/25/23 23:18
Medications
-
Active Medications
Generic Name Dose Route Start Last Admin
Trade Name Freq PRN Reason Stop Dose Admin
Acetaminophen 1,000 mg 12/26/23 09:00 12/29/23 09:15
Acetaminophen 500 Mg Tablet PO 01/23/24 08:59 1,000 mg
TID ALEXANDRA Administration
Atorvastatin Calcium 40 mg 12/26/23 18:00 12/28/23 17:29
Atorvastatin (Lipitor) 40 Mg Tablet PO 01/23/24 17:59 40 mg
QPM ALEXANDRA Administration
Clopidogrel Bisulfate 75 mg 12/26/23 08:00 12/29/23 09:15
Clopidogrel 75 Mg Tablet PO 01/23/24 07:59 75 mg
DAILY ALEXANDRA Administration
Dextrose 12.5 grams 12/26/23 04:43
Dextrose 50% (0.5 Grams/Ml) 50 Ml Syringe IV 01/23/24 04:42
[id number] PRN
hypoglycemia
Protocol
Docusate Sodium 100 mg 12/26/23 08:00 12/29/23 09:15
Docusate Sodium 100 Mg Capsule PO 01/23/24 07:59 100 mg
BID ALEXANDRA Administration
Glucagon 1 mg 12/26/23 04:43
Glucagon 1 Mg Vial IM 01/23/24 04:42
PRN PRN
hypoglycemia
Protocol
Heparin Sodium 5,000 units 12/28/23 16:00 12/29/23 09:16
Heparin 5,000 Units/Ml 1 Ml Vial SC 01/25/24 15:59 5,000 units
Q8 ALEXANDRA Administration
Hydralazine HCl 10 mg 12/28/23 12:53 12/29/23 02:04
Hydralazine 20 Mg/Ml Vial IV 01/25/24 12:52 10 mg
Q6HPRN PRN Administration
SBP >180 or DBP >110
Insulin Glargine 15 units/ 0.15 mls @ 0 mls/hr 12/28/23 08:51 12/28/23 23:12
Device SC 01/24/24 21:59 Not Given
HS ALEXANDRA
As Directed
Insulin Aspart 0 units 12/26/23 07:30 12/28/23 17:20
Insulin Aspart Low Resistance 300 Units/3 Ml Pen.Injctr SC 01/23/24 07:29 2 units
AC ALEXANDRA Administration
Protocol
Insulin Aspart 8 units 12/28/23 08:28 12/28/23 17:19
Insulin Aspart (100 Units/Ml) 3 Ml Flexpen SC 01/23/24 18:35 8 units
AC ALEXANDRA Administration
Labetalol HCl 200 mg 12/28/23 08:00 12/29/23 09:14
Labetalol 200 Mg Tablet PO 01/25/24 07:59 200 mg
TID ALEXANDRA Administration
Nifedipine 30 mg 12/29/23 10:00
Nifedipine 30 Mg Extended Release Tablet PO 01/26/24 09:59
DAILY ALEXANDRA
Ondansetron HCl 4 mg 12/26/23 09:28 12/28/23 18:05
Ondansetron 4 Mg/2 Ml Vial IV 01/23/24 09:27 4 mg
Q6HPRN PRN Administration
nausea/vomiting
Oxycodone HCl 5 mg 12/28/23 08:01 12/29/23 05:51
Oxycodone 5 Mg Regular Release Tablet PO 01/09/24 02:25 5 mg
Q4HPRN PRN Administration
Moderate - Severe pain
Pantoprazole Sodium 40 mg 12/26/23 08:00 12/29/23 09:14
Pantoprazole 40 Mg Delayed Release Tablet PO 01/23/24 07:59 40 mg
DAILY ALEXANDRA Administration
Polyethylene Glycol 17 grams 12/26/23 08:00 12/29/23 09:17
Polyethylene Glycol Powder 17 Grams Packet PO 01/23/24 07:59 17 grams
DAILY ALEXANDRA Administration
Sennosides 17.2 mg 12/26/23 22:00 12/28/23 21:10
Sennosides (Senokot) 8.6 Mg Tablet PO 01/23/24 21:59 17.2 mg
HS ALEXANDRA Administration
Sodium Chloride 0 flush 12/26/23 18:00 12/28/23 01:38
Sodium Chloride 0.9% (Flush) Syringe IV 01/23/24 17:59 2 flush
PER PROTOCOL ALEXANDRA Administration
Thiamine HCl 100 mg 12/29/23 11:00
Thiamine 100 Mg Tablet PO 12/31/23 08:01
DAILY ALEXANDRA
Home Medications
�Medication �Instructions �Recorded
atorvastatin 40 mg tablet 40 mg PO QPM High Cholesterol 12/25/23
clopidogrel 75 mg tablet 75 mg PO DAILY Blood Clot 12/25/23
Prevention/Tx
hydralazine 50 mg tablet 50 mg PO BID Blood Pressure 12/25/23
insulin aspart U-100 100 unit/mL 0 sliding scale dose SC MEALS 12/25/23
(3 mL) subcutaneous pen (Novolog Diabetes
FlexPen U-100 Insulin aspart)
insulin glargine 100 unit/mL (3 5 - 6 unit SC HS Diabetes 12/25/23
mL) subcutaneous pen (Lantus
Solostar U-100 Insulin)
labetalol 200 mg tablet 200 mg PO BID Blood Pressure 12/25/23
lisinopril 20 mg tablet 20 mg PO DAILY Blood Pressure 12/25/23
oxycodone-acetaminophen 5 mg-325 1 tab PO [id number] PRN moderate pain 12/25/23
mg tablet
pantoprazole 40 mg tablet,delayed 40 mg PO DAILY GERD 12/25/23
release
--- NOTE | 2023-12-29 08:48 | PN.CDI ---
CDI
- -
CDI:
Physician Documentation Request
Admit Date: 12/26/23 13:46
Dear Doctor Cookie,
Please review the following and provide your response in the progress notes.
Clinical Indicators:
- 12/25 H&P pmh chronic pain
- home med oxycodone-acetaminophen PRN
- 12/25-12/28 5mg Oxycodone given x 10
If possible, please provide further specificity as outlined below:
Opioid use with dependence
Opioid dependence
Other (please specify)
Use of terms such as suspected, likely, concern for, or probable (associated with a specific diagnosis that is being evaluated, monitored, or treated as if it exists) are acceptable and can be coded in the inpatient setting, when documented at the
time of discharge.
Thank you,
Marah Phan RN
CDI Specialist
Please use your independent medical judgment in providing your response.
--- NOTE | 2023-12-29 08:54 | PN.CDI ---
CDI
- -
CDI:
Physician Documentation Request
Admit Date: 12/26/23 13:46
Dear Doctor Cookie,
Please review the following and provide your response in the progress notes.
Clinical Indicators:
- per H&P - pmh DM2
- 12/27 Diabetes note indicates DM2
- 12/27 PN indicates DM1
- Patient on lantus and sliding scale insulin
In an attempt to clarify potentially conflicting documentation, please clarify the type of diabetes:
DM2
DM1
Other
Use of terms such as suspected, likely, concern for, or probable (associated with a specific diagnosis that is being evaluated, monitored, or treated as if it exists) are acceptable and can be coded in the inpatient setting, when documented at the
time of discharge.
Thank you,
Marah Phan RN
CDI Specialist
Please use your independent medical judgment in providing your response.
[2023-12-29] MEDS: PROTONIX 40 MG PO (09:14)
[2023-12-29] MEDS: TRANDATE 200 MG PO ×3 (09:14→21:03)
[2023-12-29] MEDS: PLAVIX 75 MG PO (09:15)
[2023-12-29] MEDS: COLACE 100 MG PO ×2 (09:15→19:48)
[2023-12-29] MEDS: TYLENOL 1000 MG PO ×3 (09:15→21:02)
[2023-12-29] MEDS: APRESOLINE 50 MG PO (09:15)
[2023-12-29] MEDS: HEPARIN 5000 UNITS SC ×3 (09:16→23:51)
[2023-12-29] MEDS: MIRALAX 17 GRAMS PO (09:17)
[2023-12-29 09:39] LABS: Glucose - Point of Care 191 mg/dl (70-99)
[2023-12-29] MEDS: PROCARDIA XL (EXTENDED RELEASE) 30 MG PO (09:42)
[2023-12-29] MEDS: NOVOLOG FLEXPEN 8 UNITS SC (09:59)
[2023-12-29] MEDS: NOVOLOG FLEXPEN-LOW RESISTANCE 1 UNITS SC (09:59)
[2023-12-29] MEDS: LANTUS 0.1 UNITS SC (10:13)
--- NOTE | 2023-12-29 10:28 | PN.DE.MGMTRT ---
Insulin Management
- -
12/29/2023: Diabetes management Consult Follow up
Patient admitted with change in mental status. PMH: ASCVD, CHF, HTN and Type 1 diabetes since age 16.
Prior to admission was taking Lantus 5 units @ HS and SS NovoLog AC . A1C 7.7%, Cr 1.2, eGFR 49.92. She has a CGM- Dexcom 6.
Pt is a poor historian, she is unaware of episodes of hypoglycemia. Glucose dropped to 33 on 12/24 @21:17 and again to 37 on 12/25 @20:44, and 49 @21:31 12/27, she received treatment for hypoglycemia leading to rebound Hyperglycemia.
Pt is awake, alert, oriented sitting up in bed, able to discuss diabetes mgt. She states she receives her diabetes care from her primary doctor in [place].
12/27 glucose range 49 to 519, requiring additional corrective insulin. HS lantus HELD.
12/28 Fasting glucose 401, patient given 10 units novolog and 5 units lantus @ 0600.
Due to AM lantus 5 units being administered and frequent hypoglycemia will change lantus from HS to AM dosing. Will administer additional 10 units Lantus now and change to 15 units daily @ 8AM. Will continue AC NovoLog 8 units with low corrective.
Will change diet from 1800 to 1600 calories.
Will follow and make further insulin adjustments if needed.
Discussed with nurse and patient at bedside.
Diabetes History
- -
Type of Diabetes: 1
Pre-Admission Diabetes Regimen
12/29/23
04:59
Creatinine 1.5 H
Lab Results
Hemoglobin A1c 7.7 % (4.0-5.6) H 12/26/23 05:32
Insulin Pump Settings
IP Diabetes Regimen
12/28/23 12/28/23 12/28/23
10:50 11:28 14:42
Glucose 519 H*
POC Glucose > 600 H* 342 H
12/28/23 12/28/2324
16:21 21:31 21:58
Glucose
POC Glucose 204 H 49 L* 58 L
12/28/23 12/28/23 12/29/23
22:19 23:48 02:09
Glucose
POC Glucose 92 210 H 274 H
12/29/23 12/29/23 12/29/23
04:59 05:17 06:33
Glucose 364 H
POC Glucose 400 H 401 H
12/29/23 12/29/23
07:09 09:27
Glucose 319 H
POC Glucose 191 H
Meal type: Lunch
Amount consumed: 100%
Patient Education
[2023-12-29 10:43] LABS: TSH Reflex To Free T4 1.12 uIU/ml (0.47-4.68)
--- NOTE | 2023-12-29 10:56 | W.PN.HOSP.TC ---
Today's Communication/Plan
-
titrate insulin regimen - v high this am
in the future - please confirm with all parties prior to holding lantus fully
neuro recs
thiamine
outpt neuropsych eval
Assessment / Plan
Assessment / Plan
A/P: Patient is a 68y F with PMH significant for ASCVD, HTN and DM-II who presents to ED for evaluation of mental status change.
Acute Metabolic Encephalopathy With recent personality changes
-� Patient has had mental status changes since spinal surgery as per family
-all metabolic workup is negative
� Has not spiked any temperature
- No evidence of acute infectious process.
- Hold / minimize sedating meds if possible.
- Follow for continued improvement or any new / recurrent symptoms.
-f/u ammonia level neg, TSH within normal limits
-� Neurology consulted for possible assistance
-neuropsych outpatient
-Thiamine
�MRI negative for vascular/structural abnormalities status low concern for [employer] infection producing symptoms
DM-I .
Hyperglycemia with mild DKA
- Issues with hypoglycemia during recent admission at [facility].
- hemoglobin A1c 7.7 .
- resolved acidosis.Restart Lantus and mealtime insulin.
Consult DM nurse practitioner
Benign Hypertension With hypertensive urgency
-Patient was on hydralazine, lisinopril, and labetalol.
labetolol changed to TID
-Stop hydralazine
� Start nifedipine
� Stop lisinopril due to fluctuating renal function and hyperkalemia
#Hyperkalemia
� Hold/stop lisinopril
� Lokelma
#Hyponatremia
� Mild
Monitor
Normocytic Anemia
- Hgb slightly decreased from recent values at [facility] (9.4 to 8).
- Heme test stools.
- Normal iron studies.
- Iron sat, B12 and folate, Within normal limits
- Continue PPI daily.
- GI eval if heme positive stools or persistent swallow issues, etc.
Renal Insufficiency-suspect chronic kidney disease stage III
Obtain all information
#Transaminitis
# Mild
Lumbar DDD
Radicular Pain
- Present x months. No relief despite lumbar surgery.
- Trial of gabapentin.
- Continue oxycodone PRN.
- PT / OT evaluations.
- no dvt on LE edema
ASCVD
- Stable. No chest pain, dyspnea, etc.
- Continue clopidogrel, statin, etc.
DVT Prophylaxis: Lovenox
Code Status: Full
Total time spent on today's encounter was 54 minutes which included time spent in counseling the patient regarding diagnosis and treatment plan as listed above, goals of care, and symptom management. Case was discussed with nursing staff . All labs
and imaging personally reviewed by me. Remainder the time spent in detailed review of previous records, lab data, imaging, and other medical provider documentation.
Anticipated Discharge: 24 - 48 hours
Subjective/Interval History
-
Date of Service: December 29, 2023
No acute events overnight, unfortunately Lantus was held overnight and hypoglycemic this morning
Objective Data
-
Labs:
Laboratory Results
12/29/23 12/29/23
04:59 07:09
WBC 3.6 L
Hgb 7.8 L
Hct 23.2 L
Plt Count 180 D
Sodium 134 L
Potassium 5.7 H
Chloride 100
Carbon Dioxide 23
BUN 39 H
Creatinine 1.5 H
Glucose 364 H 319 H
Calcium 9.1
Total Bilirubin 0.2
AST 69 H
ALT 41 H
Alkaline Phosphatase 82
Vital Signs:
Vital Signs
Temp Pulse Resp BP Pulse Ox
97.8 F 72 25 177/60 96
12/29/23 07:10 12/29/23 09:42 12/29/23 06:00 12/29/23 09:42 12/29/23 06:00
I&O
12/28/23 12/29/23 12/30/23
06:59 06:59 06:59
Intake Total 240 / 240
Output Total 1375 / 1375 750 / 750
Balance -1135 / -1135 -750 / -750
Review of Systems
-
History Source: Patient
All other systems: Not reviewed unless documented
Physical Exam
-
General: Comfortable
Respiratory: Non Labored Respirations; Negative Accessory Resp Muscle Use
Cardiac: Regular Rhythm and S1/S2
GI: Soft, Nontender, Nondistended and Normal Bowel Sounds
Neuro: AO x 3 and No Motor Deficits; Negative Tremors, Slurred Speech or Facial Droop
Psych: Calm; Negative Confused or Agitated
Data Reviewed
-
CT Scan: Image personally visualized and interpreted
MRI: Image personally visualized and interpreted
Labs: Labs Reviewed by me
[2023-12-29] MEDS: LOKELMA 10 GRAM PO (11:18)
[2023-12-29] MEDS: LR 500 IV (11:33)
--- NOTE | 2023-12-29 12:05 | PN.CDI ---
CDI
- -
CDI:
Physician Documentation Request
Admit Date: 12/26/23 13:46
Dear Doctor Cookie,
Please review the following and provide your response in the progress notes.
Clinical Indicators:
The diagnosis of Acute exacerbation of CHF was documented on 12/24 ER Physician but is not consistently noted in subsequent documentation.
- 12/24 Er Physician admitting discharge problem 'Acute exacerbation of CHF (congestive heart failure)'
- 12/24 proBNP 7000
- No pmh heart failure
Please clarify the following:
____ - Acute CHF (please specify type) was present on admission and is now resolved.
____ - Acute CHF (please specify type) was present on admission and is still being monitored, evaluated or treated
____ - Acute CHF was ruled out
____ - Acute CHF (please specify type) is still a likely, suspected, probable diagnosis
____ - Other
Use of terms such as suspected, likely, concern for, or probable (associated with a specific diagnosis that is being evaluated, monitored, or treated as if it exists) are acceptable and can be coded in the inpatient setting, when documented at the
time of discharge.
Thank you,
Marah Phan RN
CDI Specialist
Please use your independent medical judgment in providing your response.
[2023-12-29] MEDS: ZOFRAN 4 MG IV (12:28)
[2023-12-29 13:16] LABS: Glucose - Point of Care 115 mg/dl (70-99)
[2023-12-29] MEDS: VITAMIN B1 100 MG PO (13:27)
[2023-12-29] MEDS: LR 1000 IV (13:48)
[2023-12-29] MEDS: NOVOLOG FLEXPEN-LOW RESISTANCE SC ×2 (13:49→17:45)
[2023-12-29] MEDS: NOVOLOG FLEXPEN 5 UNITS SC ×2 (14:19→18:45)
[2023-12-29] MEDS: LIPITOR 40 MG PO (17:29)
[2023-12-29 17:37] LABS: Glucose - Point of Care 105 mg/dl (70-99)
[2023-12-29] MEDS: NOVOLOG FLEXPEN SC (17:45)
[2023-12-29] MEDS: SENOKOT 17.2 MG PO (21:02)
[2023-12-29 22:13] LABS: Glucose - Point of Care 123 mg/dl (70-99)
[2023-12-30] VITALS (12 sets, daily range): BP systolic 132–204; BP diastolic 50–157
[2023-12-30 04:00] LABS: Hematocrit 22.9 % (37.0-47.0); Hemoglobin 7.7 g/dL (12.0-16.0); Mean Corp Hgb Conc. 33.6 g/dL (33.0-37.0); Mean Corpuscular Hgb 30.8 pg (27.0-31.0); Mean Corpuscular Volume 91.6 fL (81.0-99.0); Mean Platelet Volume 10.2 fL (7.4-10.4); Platelet Count 202 10^3/uL (130-400); Red Cell Dist. Width 14.1 % (11.5-14.5); White Blood Cell Count 3.6 10^3/uL (4.8-10.8)
[2023-12-30] MEDS: ROXICODONE 5 MG PO ×2 (04:13→08:24)
[2023-12-30] MEDS: APRESOLINE 10 MG IV (04:13)
[2023-12-30 04:17] LABS: Glucose - Point of Care 278 mg/dl (70-99)
[2023-12-30 04:21] LABS: ALT (SGPT) 49 U/L (0-35); AST (SGOT) 90 U/L (14-36); Albumin 3.6 g/dl (3.5-5.0); Alkaline Phosphatase 88 U/L (38-126); Blood Urea Nitrogen 43 mg/dl (7-17); Calcium 9.3 mg/dl (8.4-10.2); Carbon Dioxide 26 mmol/L (22-30); Chloride 102 mmol/L (98-107); Estimated Creatinine Clearance 32 ml/min; Glucose 233 mg/dl (70-99); Potassium 5.1 mmol/L (3.5-5.1); Sodium 137 mmol/L (135-145); Total Bilirubin 0.1 mg/dl (0.2-1.3); Total Protein 5.9 g/dl (6.3-8.2)
--- NOTE | 2023-12-30 04:30 | PTCARENOTE ---
received pt from day shift. aaox3, but short term memory poor and forgetful at times. bed alarm on. NSR on monitor. pt hypertensive and PRN hydralazine given. Pt resting in bed with call soria in reach.
[2023-12-30] MEDS: PROCARDIA XL (EXTENDED RELEASE) 30 MG PO (06:35)
[2023-12-30] MEDS: TRANDATE 200 MG PO (06:35)
[2023-12-30 08:11] LABS: Glucose - Point of Care 358 mg/dl (70-99)
[2023-12-30] MEDS: NOVOLOG FLEXPEN-LOW RESISTANCE 5 UNITS SC (08:23)
[2023-12-30] MEDS: NOVOLOG FLEXPEN 8 UNITS SC (08:23)
[2023-12-30] MEDS: LANTUS 0.15 UNITS SC (08:24)
[2023-12-30] MEDS: PLAVIX 75 MG PO (08:24)
[2023-12-30] MEDS: COLACE 100 MG PO (08:24)
[2023-12-30] MEDS: PROTONIX 40 MG PO (08:24)
[2023-12-30] MEDS: TYLENOL 1000 MG PO ×2 (08:24→14:55)
[2023-12-30] MEDS: VITAMIN B1 100 MG PO (08:24)
[2023-12-30] MEDS: HEPARIN 5000 UNITS SC (08:24)
[2023-12-30] MEDS: MIRALAX 17 GRAMS PO (08:25)
--- NOTE | 2023-12-30 08:31 | PN.DE.MGMTRT ---
Insulin Management
- -
12/30/2023: Diabetes management Consult Follow up
Patient admitted with change in mental status. PMH: ASCVD, CHF, HTN and Type 1 diabetes since age 16.
Prior to admission was taking Lantus 5 units @ HS and SS NovoLog AC . A1C 7.7%, Cr 1.2, eGFR 49.92. She has a CGM- Dexcom 6.
Pt is a poor historian, she is unaware of episodes of hypoglycemia. Glucose dropped to 33 on 12/24 @21:17 and again to 37 on 12/25 @20:44, and 49 @21:31 12/27, she received treatment for hypoglycemia leading to rebound Hyperglycemia.
Pt is awake, alert, oriented sitting up in bed, able to discuss diabetes mgt. She states she receives her diabetes care from her primary doctor in [place]. At the time of my visit patient interviewed for cognitive testing.
12/28 glucose range 105 to 401, requiring additional corrective insulin. HS lantus HELD. AM lantus 15 units administered.
12/29 Fasting glucose 278, will continue 15 units lantus daily and 5 units novolog AC.
Due to frequent hypoglycemia will continue lantus in AM dosing. 3:32AM glucose 233, 4:06 am glucose 278, 7:59 glucose 358. Patient states she did not eat any additional food overnight. May require HS lantus, lower dose.
Will follow and make further insulin adjustments if needed.
Discussed with patients nurse.
Diabetes History
- -
Type of Diabetes: 1
Pre-Admission Diabetes Regimen
12/30/23
03:32
Creatinine 1.5 H
Lab Results
Hemoglobin A1c 7.7 % (4.0-5.6) H 12/26/23 05:32
Insulin Pump Settings
IP Diabetes Regimen
12/29/23 12/29/23 12/29/23
09:27 13:05 17:26
Glucose
POC Glucose 191 H 115 H 105 H
12/29/23 12/30/23 12/30/23
22:01 03:32 04:06
Glucose 233 H
POC Glucose 123 H 278 H
12/30/23
07:59
Glucose
POC Glucose 358 H
Patient Education
--- NOTE | 2023-12-30 09:50 | PTOTSP ---
Speech Language Pathology
Pt seen for cognitive evaluation via the [facility] Mental Status (UMS) Examination. Pt with a score of 14/30 where normal range is 26-30. Pt with mod cognitive deficits. Per MD notes, pt with cognitive issues since back surgery in
May and neuro is suspecting underlying cognitive decline.
Pt also seen for clinical bedside swallow evaluation. Pt has dentures, but does not always wear them to eat. P.O. trials of regular solids and thin liquids provided. Adequate mastication, bolus formation, and A-P transit noted with no oral
residue. No overt signs of aspiration.
Recommend:
(1) Continue regular solids/thin liquids
(2) General aspiration precautions
(3) Meds as tolerated
(4) Cognitive therapy with [employer]ED CAKE TRIMMER post discharge
(5) LIN[employer] CAKE TRIMMER to sign off in this level of care. Please reconsult as warranted
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
[2023-12-30 12:23] LABS: Glucose - Point of Care 200 mg/dl (70-99)
[2023-12-30] MEDS: NOVOLOG FLEXPEN 5 UNITS SC (12:28)
[2023-12-30] MEDS: NOVOLOG FLEXPEN-LOW RESISTANCE 2 UNITS SC (12:28)
--- NOTE | 2023-12-30 12:52 | W.PN.HOSP.TC ---
Addendum entered and electronically signed by Rom Gary MD 12/31/23 15:43:
[id number]
Addendum entered and electronically signed by Rom Gary MD 12/31/23 15:07:
Opioid use with dependence
DM1
Original Note:
Today's Communication/Plan
-
potassium and LFTs in 3 days
Cognitive and neuropsychological testing outpatient
Assessment / Plan
Assessment / Plan
A/P: Patient is a 68y F with PMH significant for ASCVD, HTN and DM-II who presents to ED for evaluation of mental status change.
Acute Metabolic Encephalopathy With recent personality changes
Neurocognitive dysfunction
-� Patient has had mental status changes since spinal surgery as per family
-all metabolic workup is negative
� Has not spiked any temperature
- No evidence of acute infectious process.
- Hold / minimize sedating meds if possible. Stop oxycodone
- Follow for continued improvement or any new / recurrent symptoms.
-f/u ammonia level neg, TSH within normal limits
-� Neurology consulted for possible assistance
-neuropsych outpatient
-Psych eval: Cognitive testing outpatient
-Thiamine
�MRI negative for vascular/structural abnormalities status low concern for [employer] infection producing symptoms
DM-I .
Hyperglycemia with mild DKA
- Issues with hypoglycemia during recent admission at [facility].
- hemoglobin A1c 7.7 .
- resolved acidosis.Restart Lantus and mealtime insulin.
Consult DM nurse practitioner - discussed - should go back on usual home meds
Benign Hypertension With hypertensive urgency
-Patient was on hydralazine, lisinopril, and labetalol.
labetolol BID - switched back due to lower DBP
-Stop hydralazine
� Start nifedipine - changed to 30mg BID
� Stop lisinopril due to fluctuating renal function and hyperkalemia
#Hyperkalemia
� Hold/stop lisinopril
� Lokelma
- improving
-f/u bmp outpatient
#Hyponatremia
� Mild
Monitor
Normocytic Anemia
- Hgb slightly decreased from recent values at [facility] (9.4 to 8).
- Heme test stools.
- Normal iron studies.
- Iron sat, B12 and folate, Within normal limits
- Continue PPI daily.
Renal Insufficiency-suspect chronic kidney disease stage III
Obtain all information
#Transaminitis
# Mild
-no abd pain
-f/u lfts outpatient
Lumbar DDD
Radicular Pain
- Present x months. No relief despite lumbar surgery.
- stop oxycodone
- PT / OT evaluations.
- no dvt on LE edema
ASCVD
- Stable. No chest pain, dyspnea, etc.
- Continue clopidogrel, statin, etc.
DVT Prophylaxis: Lovenox
Code Status: Full
Total time spent on today's encounter was 55 minutes which included time spent in counseling the patient regarding diagnosis and treatment plan as listed above, goals of care, and symptom management. Case was discussed with nursing staff . All labs
and imaging personally reviewed by me. Remainder the time spent in detailed review of previous records, lab data, imaging, and other medical provider documentation.
Anticipated Discharge: Today
Subjective/Interval History
-
Date of Service: December 30, 2023
No acute events overnight
Objective Data
-
Labs:
Laboratory Results
12/30/23
03:32
WBC 3.6 L
Hgb 7.7 L
Hct 22.9 L
Plt Count 202
Sodium 137
Potassium 5.1
Chloride 102
Carbon Dioxide 26
BUN 43 H
Creatinine 1.5 H
Glucose 233 H
Calcium 9.3
Total Bilirubin 0.1 L
AST 90 H
ALT 49 H
Alkaline Phosphatase 88
Vital Signs:
Vital Signs
Temp Pulse Resp BP Pulse Ox
98.3 F 72 17 132/54 95
12/30/23 11:00 12/30/23 12:00 12/30/23 12:00 12/30/23 12:06 12/30/23 12:00
I&O
12/29/23 12/30/23 12/31/23
06:59 06:59 06:59
Intake Total 480 / 480
Output Total 750 / 750 850 / 850 500 / 500
Balance -750 / -750 -370 / -370 -500 / -500
Review of Systems
-
History Source: Patient
All other systems: Not reviewed unless documented
Physical Exam
-
General: Comfortable
Respiratory: Non Labored Respirations; Negative Accessory Resp Muscle Use
Cardiac: Regular Rhythm and S1/S2
GI: Soft, Nontender, Nondistended and Normal Bowel Sounds
Neuro: AO x 3 and No Motor Deficits; Negative Tremors, Slurred Speech or Facial Droop
Psych: Calm; Negative Confused or Agitated
Data Reviewed
-
CT Scan: Image personally visualized and interpreted
MRI: Image personally visualized and interpreted
Labs: Labs Reviewed by me
--- NOTE | 2023-12-30 13:07 | W.DS.TRANS ---
DC Summary - Batch Analyst
-
Discharge Instructions:
Discharge Diagnosis/Procedures Cognitive dysfunction
Personality changes
Diet Low Cholesterol,Low Fat,Diabetic, Carb
Controlled
Activity As tolerated
Blood Work bmp in 3 days with pcp -monitoring sodium and
potassium; LFTs in 3 days monitoring AST/ALT
Others Tests please monitor blood pressure to ensure not
Systolic over 180 or diastolic over 110 - check
twice a day - f/u with PCP
Cognitive testing
Instructions:
Stand-Alone Forms:
Changes to Home Medications: Yes
Discharge Medications:
DC Medications w/original date entered in [employer]
atorvastatin 40 mg tablet 40 mg PO QPM High Cholesterol 12/25/23
clopidogrel 75 mg tablet 75 mg PO DAILY Blood Clot Prevention/Tx 12/25/23
insulin aspart U-100 100 unit/mL (3 mL) subcutaneous pen (Novolog FlexPen U-100 Insulin aspart) 0 sliding scale dose SC MEALS Diabetes 12/25/23
insulin glargine 100 unit/mL (3 mL) subcutaneous pen (Lantus Solostar U-100 Insulin) 5 - 6 unit SC HS Diabetes 12/25/23
labetalol 200 mg tablet 200 mg PO BID Blood Pressure 12/25/23
pantoprazole 40 mg tablet,delayed release 40 mg PO DAILY GERD 12/25/23
acetaminophen 325 mg tablet (Tylenol) 650 mg (2 x 325 mg) PO Q6H PRN Pain 30 days #30 tabs 12/30/23
nifedipine 30 mg tablet,extended release 30 mg PO BID 30 days #60 tabs 12/30/23
thiamine HCl (vitamin B1) 100 mg tablet 100 mg PO DAILY #30 tabs 12/30/23
Home Medication Changes
acetaminophen 325 mg tablet (Tylenol) 650 mg (2 x 325 mg) PO Q6H PRN Pain 30 days #30 tabs 12/30/23
nifedipine 30 mg tablet,extended release 30 mg PO BID 30 days #60 tabs 12/30/23
thiamine HCl (vitamin B1) 100 mg tablet 100 mg PO DAILY #30 tabs 12/30/23
Pending Results: No
--- NOTE | 2023-12-30 14:59 | CM ---
Patient with Dx TONIE, Hyperglycemia with mild DKA, hypertensive urgency, Normocytic Anemia. Room air.
Message from Dr Gary and ST [facility]; requesting ST services for patient at d/c for cognitive therapy.
Spoke with patient's daughter Chloe; she agrees to d/c today to home and will provide transport. Daughter aware [facility] is setup for SN/PT/OT and Speech therapy. She would also like a SW for LTC planning. Daughter is aware that her mother has not
signed up for Medicare and she will be looking into that. Daughter indicated she received the caregiver list however did not say she had lined up a caregiver for her mother.
Message sent to [facility] Liaison requesting ST and SW.
Plan home today with [facility], [facility], with caregiver list, with daughter.
--- NOTE | 2023-12-30 15:20 | PTCARENOTE ---
Patient getting into wheelchair for discharge and patient reports she thinks her BS is low. Pt's blood sugar check was 31. Pt reports feeling lightheaded. notified and advised to wait an hour from now for discharge.
[2023-12-30 15:27] LABS: Glucose - Point of Care 31 mg/dl (70-99)
--- NOTE | 2023-12-30 15:33 | PTCARENOTE ---
Patient ordered PB&J sandwich and milk, per Cierra Morrissey's recommendation.
[2023-12-30 15:51] LABS: Glucose - Point of Care 78 mg/dl (70-99)
[2023-12-30 16:35] LABS: Glucose - Point of Care 79 mg/dl (70-99)
== END 2023-12-30 17:34 | disposition home or self-care (01) | DRG 70 ==
LOC: IMU 13:46
PROVIDERS: Emergency Medicine; Internal Medicine; ADMITTING PHYSICIAN Hospitalist; ATTENDING PHYSICIAN Internal Medicine; CONSULT PHYSICIAN Psychiatry & Neurology Neurology; EMERGENCY PHYSICIAN Emergency Medicine; FAMILY PHYSICIAN Family Medicine; OTHER PHYSICIAN Psychiatry & Neurology Psychiatry
DX: G93.41 Metabolic encephalopathy (principal); E10.10 Type 1 diabetes mellitus with ketoacidosis without coma; I13.0 Hypertensive heart and chronic kidney disease with heart failure and stage 1 through stage 4 chronic kidney disease, or unspecified chronic kidney disease; N17.9 Acute kidney failure, unspecified; E87.1 Hypo-osmolality and hyponatremia; F11.20 Opioid dependence, uncomplicated; I25.10 Atherosclerotic heart disease of native coronary artery without angina pectoris; E10.65 Type 1 diabetes mellitus with hyperglycemia; E10.22 Type 1 diabetes mellitus with diabetic chronic kidney disease; E87.5 Hyperkalemia; R74.01 Elevation of levels of liver transaminase levels; N18.30 Chronic kidney disease, stage 3 unspecified; E78.00 Pure hypercholesterolemia, unspecified; I50.9 Heart failure, unspecified; I16.0 Hypertensive urgency; G89.29 Other chronic pain; D64.9 Anemia, unspecified; M51.16 Intervertebral disc disorders with radiculopathy, lumbar region; K21.9 Gastro-esophageal reflux disease without esophagitis; Z95.5 Presence of coronary angioplasty implant and graft; Z87.891 Personal history of nicotine dependence; Z79.02 Long term (current) use of antithrombotics/antiplatelets; Z79.4 Long term (current) use of insulin
CPT/HCPCS: 70450; 70551; 71046; 80048; 80053; 80306; 81003; 81015; 82010; 82140; 82607; 82728; 82746; 82805; 82947; 82962; 83036; 83540; 83550; 83880; 84443; 84484; 85025; 85027; 85045; 87040; 92523; 92610; 93005; 93971; 97163; 97165; 99285

== ENCOUNTER 2024-02-16 22:33 | Emergency (ER) | payer OTHER, SELFPAY ==
[2024-02-16 23:30] LABS: Glucose - Point of Care 73 mg/dl (70-99)
[2024-02-16 23:34] VITALS: BP 165/66
--- NOTE | 2024-02-17 00:11 | ED.GENMED ---
History of Present Illness
General
Chief Complaint: Facial Problem
Source: patient
Exam Limitations: none
Time Seen by Provider: 02/16/24 23:55
History of Present Illness
History of Present Illness:
68yoF with a history of type 1 diabetes, coronary artery disease, hypertension, and hyperlipidemia presenting for evaluation of facial pain. Patient was eating broccoli leonor around 1 PM. Her daughter mentioned to her that the left side of her face
appeared swollen. Patient looked in her mirror and also noticed the swelling. The swelling has since improved but she states her face feels tight. She is also having new pain in her left maxillary region that radiates into her neck. She also
reports some blurred vision in her left eye. She denies any fevers, chills, dental pain, chest pain, shortness of breath.
Patient also noted to by hypoglycemic on arrival. Patient admits to taking her insulin as usual this evening but did not eat dinner due to her symptoms/coming to the ED. She is not symptomatic from this perspective.
Past History
Past History
ED Past Medical History: CAD, HTN, Hypercholesterolemia and IDDM
ED Past Surgical History: Appendectomy, Cardiac (Cardiac stents), and Orthopedic (Back surgery)
Phy Exam
General Physical Exam
General Presentation: well appearing and no apparent distress
General age: appears stated age
General Skin: warm and dry
General Habitus: normal
General Mental: alert
ENT Exam
ENT Exam: TM's normal, pharynx normal, neck supple, normocephalic and other (+Tenderness along the L parotid gland with swelling. Area is tender to touch. No overlying erythema/warmth. No expressible purulence.)
Additional ENT: Patient endentulous
Eye Exam
Eye Exam: other (R pupil irregularly shaped and non-reactive. This is baseline per patient from prior cataract surgery.)
Neurological Exam
Neurological Exam: alert
[place] Coma Scale
Eye Opening: Spontaneous
Verbal Response: Oriented
Motor Response: Obeys Commands
GCS Total Score: 15
Skin Exam
Skin Exam: normal color and warm/dry
Psychiatric Exam
Psychiatric Exam: normal mood/affect
Course
Orders/Labs/Results
Orders:
Orders
02/17/24 00:10
CT Facial Bones W/ Iv Contrast Urgent
Comment:
Reason For Exam: L facial pain
02/17/24 00:12
Visual Acuity- Treatment ONCE
02/17/24 00:14
Electrocardiogram (*1) Urgent
Reason for Study: Other
Other Reason for Exam: neck pain
EKG- Treatment ONCE
02/17/24 00:32
Complete Blood Count/With Diff Urgent
Comprehensive Metabolic Panel Urgent
ESR [Erythrocyte Sed Rate] Urgent
Troponin I Urgent
02/17/24 00:42
Acetaminophen [Tylenol] 650 mg PO NOW STA
02/17/24 02:49
Amoxicillin 875 mg/Clav 125 mg [Augmentin 875 mg/125 mg] 1 tablet PO NOW STA
Dexamethasone Sod Phosphate [Decadron] 10 mg IV NOW STA
Abnormal Lab Results
02/17/24 02/17/24 02/17/24
00:21 00:32 01:10
RBC 2.99 L 10^6/uL
(4.20-5.40)
Hgb 9.3 L g/dL
(12.0-16.0)
Hct 26.7 L %
(37.0-47.0)
MCH 31.1 H pg
(27.0-31.0)
ESR 41 H mm/hour
(0-20)
BUN 35 H mg/dl
(7-17)
Creatinine 1.4 H mg/dL
(0.6-1.0)
Glucose 54 L* mg/dl
(70-99)
Total Bilirubin < 0.1 L mg/dl
(0.2-1.3)
ALT 48 H U/L
(0-35)
POC Glucose 44 L* mg/dl 127 H mg/dl
(70-99) (70-99)
02/17/24
01:50
RBC
Hgb
Hct
MCH
ESR
BUN
Creatinine
Glucose
Total Bilirubin
ALT
POC Glucose 188 H mg/dl
(70-99)
02/17/24 00:32
02/17/24 00:32
Vital Signs
Initial and Last Documented VS:
Initial Vital Signs
Temp Pulse BP Pulse Ox
98.1 F 84 165/66 98
02/16/24 23:34 02/16/24 23:34 02/16/24 23:34 02/16/24 23:34
Last Documented Vital Signs
Temp Pulse Resp BP Pulse Ox
98.1 F 84 23 188/61 99
02/16/24 23:34 02/17/24 01:50 02/17/24 01:50 02/17/24 03:00 02/17/24 01:50
MDM/Problems Addressed
Differential Diagnosis Includes:
68yoF here with L facial pain and swelling that she noticed earlier today. Pain radiates into neck. Denies f/c. Hx of T1DM. She is hypertensive with otherwise normal vital signs. There is tenderness and swelling near the parotid gland on exam. Neck
supple. No overlying skin changes. Patient also noted to be hypoglycemic. She admits to taking her insulin tonight but did not eat dinner. Differential diagnosis includes but is not limited to: parotitis, abscess, sialolithiasis, trigeminal neuralgia
Initial ED plan: Check cardiac labs, ESR, EKG, and CT facial bones Tylenol for pain. Will give juice/food for hypoglycemia as she is alert and tolerating oral intact.
*EKG
Interpreted by ED Provider?: Yes
EKG Intrepretation Date: 02/17/24
Heart Rate: 84
Rate: normal
Rhythm: sinus
[place]: normal axis
Interval: normal interval
QRS Pattern: normal QRS
Ischemia: non-specific ST changes (nonspecific ST/T wave changes primarily in lateral leads. Unchanged from EKG in December 2023.)
*Critical Care Note
Total Time (30-74mins, 75-104mins- exclusive of procedures): Not Applicable
Update Note
Update Note:
CT shows evidence of parotitis. No imaging evidence of abscess. White count is normal. Hypoglycemia resolved after eating. No indication for hospitalization at this time. Dose of Decadron given and she was started on a course of Augmentin.
Supportive care discussed including warm compresses, massage, and sour candies. Advised f/u with PCP and ENT. ED return precautions discussed including fevers. She was discharged in stable condition.
ED Attending Note
-
Portions of this chart may have been created with voice recognition software.� Occasional wrong word or��sound alike� substitutions may have occurred due to the inherent limitations of voice recognition software.
Discharge Plan
Departure
Patient Disposition: Home (Routine Discharge)
Date of Disposition: 02/17/24
Time of Disposition: 02:57
Patient with high blood pressure during this ER visit?: Yes
Discharge Problem:
Acute parotitis
Instructions: Parotitis
Prescriptions:
New
amoxicillin-pot clavulanate 875-125 mg tablet
1 tab PO BID Qty: 13 0RF
No Action
atorvastatin 40 mg tablet
40 mg PO QPM
clopidogrel 75 mg tablet
75 mg PO DAILY
pantoprazole 40 mg tablet,delayed release (DR/EC)
40 mg PO DAILY
insulin aspart U-100 [Novolog FlexPen U-100 Insulin] 100 unit/mL (3 mL) insulin pen
0 sliding scale dose SC MEALS
insulin glargine [Lantus Solostar U-100 Insulin] 100 unit/mL (3 mL) insulin pen
5 - 6 unit SC HS
nifedipine 30 mg Tablet Extended Release
30 mg PO BID 30 Days Qty: 60 0RF
thiamine HCl (vitamin B1) 100 mg Tablet
100 mg PO DAILY Qty: 30 0RF
acetaminophen [Tylenol] 325 mg tablet
650 mg PO Q6H PRN (Reason: Pain) 30 Days Qty: 30 0RF
metoprolol tartrate 25 mg Tablet
25 mg PO DAILY
Referrals:
Hussein Jim DO [Family Provider] -
Ron Dave MD [Active] -
Activity Restrictions/Additional Instructions:
Take antibiotics as prescribed. Apply warm compresses and massage area. Eat sour candies to help with saliva production. Take Tylenol as needed for pain.
Please follow-up with your family doctor and ENT. Return to the ER with any worsening symptoms or fevers.
Interventions
Interventions:
*Risk Screen - Suicide Last Done: 02/16/24 22:34
*General Assessment Last Done: 02/17/24 02:56
*Neglect/Abuse Screening Last Done: 02/16/24 22:34
ED- Fall Risk Assessment Last Done: 02/17/24 02:56
*ED COVID-19 Vaccine History Last Done: 02/16/24 22:40
*Nursing Disposition Last Done: 02/17/24 02:56
ED- Neurological Assessment Last Done: 02/17/24 02:57
ED-Skin Assessment Last Done: 02/17/24 01:02
Discharge Date and Time
Discharge Date/Time: 02/17/24 03:15
Print Language: ARABIC
--- NOTE | 2024-02-17 00:22 | EDRN ---
Eulalia cartagena aware of patient's blood sugar being 44 and wants the patient to eat.
[2024-02-17 00:27] LABS: Glucose - Point of Care 44 mg/dl (70-99)
[2024-02-17 00:38] LABS: Glucose - Point of Care 70 mg/dl (70-99)
--- NOTE | 2024-02-17 00:39 | EDRN ---
Patient able to eat. Repeat blood sugar 70. IV access in place. Patient on cardiac monitoring and states she is starting to feel a little better.
[2024-02-17 00:41] VITALS: BP 192/96
[2024-02-17 00:44] LABS: % Basophils 0.3 % (0-2); % Eosinophils 4.4 % (0-6); % Immature Granulocytes 0.3 % (0-0.5); % Lymphocytes 39.5 % (20.5-51.1); % Monocytes 8.3 % (1.7-9.3); % Neutrophils 47.2 % (42.2-75.2); Absolute Eosinophils 0.3 10^3/uL (0-0.7); Absolute Monocytes 0.6 10^3/uL (0.1-0.6); Absolute Neutrophils 3.5 10^3/uL (1.4-6.5); Hematocrit 26.7 % (37.0-47.0); Hemoglobin 9.3 g/dL (12.0-16.0); Mean Corp Hgb Conc. 34.8 g/dL (33.0-37.0); Mean Corpuscular Hgb 31.1 pg (27.0-31.0); Mean Corpuscular Volume 89.3 fL (81.0-99.0); Mean Platelet Volume 9.1 fL (7.4-10.4); Nucleated Red Blood Cells % 0 %; Platelet Count 285 10^3/uL (130-400); Red Blood Cell Count 2.99 10^6/uL (4.20-5.40); Red Cell Dist. Width 12.9 % (11.5-14.5); White Blood Cell Count 7.5 10^3/uL (4.8-10.8)
[2024-02-17] MEDS: TYLENOL 650 MG PO (00:55)
[2024-02-17 00:56] LABS: Erythrocyte Sed Rate 41 mm/hour (0-20)
[2024-02-17 01:00] VITALS: BP 179/91
[2024-02-17 01:11] LABS: ALT (SGPT) 48 U/L (0-35); AST (SGOT) 36 U/L (14-36); Albumin 4.2 g/dl (3.5-5.0); Alkaline Phosphatase 80 U/L (38-126); Blood Urea Nitrogen 35 mg/dl (7-17); Calcium 9.6 mg/dl (8.4-10.2); Carbon Dioxide 26 mmol/L (22-30); Chloride 104 mmol/L (98-107); Glucose 54 mg/dl (70-99); Potassium 4.3 mmol/L (3.5-5.1); Sodium 139 mmol/L (135-145); Total Bilirubin < 0.1 mg/dl (0.2-1.3); Total Protein 6.8 g/dl (6.3-8.2); eGFR 41.49
[2024-02-17 01:11] LABS: Glucose - Point of Care 127 mg/dl (70-99)
[2024-02-17 01:13] LABS: Troponin I 0.013 ng/ml
[2024-02-17 01:51] LABS: Glucose - Point of Care 188 mg/dl (70-99)
[2024-02-17] MEDS: AUGMENTIN 875 MG/125 MG 1 TABLET PO (02:51)
[2024-02-17] MEDS: DECADRON 10 MG IV (02:51)
[2024-02-17 03:00] VITALS: BP 188/61
== END 2024-02-17 03:15 | disposition home or self-care (01) ==
LOC: EMR 22:33
PROVIDERS: Physician Assistant; EMERGENCY PHYSICIAN Emergency Medicine; FAMILY PHYSICIAN Family Medicine
DX: K11.21 Acute sialoadenitis (principal); I25.10 Atherosclerotic heart disease of native coronary artery without angina pectoris; I10 Essential (primary) hypertension; E78.00 Pure hypercholesterolemia, unspecified; E10.649 Type 1 diabetes mellitus with hypoglycemia without coma; Z79.4 Long term (current) use of insulin; Z95.5 Presence of coronary angioplasty implant and graft; Z90.49 Acquired absence of other specified parts of digestive tract
CPT/HCPCS: 96374; 99284; 70487; 80053; 82962; 84484; 85025; 85652; 93005; Q9967

== ENCOUNTER 2024-12-20 14:21 | Emergency (ER) | payer OTHER, SELFPAY ==
[2024-12-20 14:25] VITALS: BP 122/84
[2024-12-20 15:04] LABS: Hematocrit 29.3 % (37.0-47.0); Hemoglobin 9.9 g/dL (12.0-16.0); Mean Corp Hgb Conc. 33.8 g/dL (33.0-37.0); Mean Corpuscular Volume 90.2 fL (81.0-99.0); Nucleated Red Blood Cells % 0 %; Platelet Count 232 10^3/uL (130-400); Red Cell Dist. Width 12.7 % (11.5-14.5)
[2024-12-20 15:11] LABS: APTT 30.2 Sec (23.4-35.0)
[2024-12-20 15:26] LABS: ALT (SGPT) 23 U/L (0-35); AST (SGOT) 28 U/L (14-36); Albumin 3.9 g/dl (3.5-5.0); Alkaline Phosphatase 82 U/L (38-126); Blood Urea Nitrogen 26 mg/dl (7-17); Calcium 9.0 mg/dl (8.4-10.2); Carbon Dioxide 21 mmol/L (22-30); Chloride 103 mmol/L (98-107); Glucose 579 mg/dl (70-99); Lipase 48 U/L (23-300); Potassium 5.2 mmol/L (3.5-5.1); Sodium 131 mmol/L (135-145); Total Protein 6.6 g/dl (6.3-8.2); eGFR 45.07
--- NOTE | 2024-12-20 16:08 | ED.GENMED ---
History of Present Illness
General
Chief Complaint: Abnormal Lab Value
Source: patient
Exam Limitations: none
Time Seen by Provider: 12/20/24 16:07
Nursing documentation reviewed up to this point in time: agreed with
History of Present Illness
History of Present Illness:
69-year-old female with history of CAD, HTN, HLD, IDDM, cardiac stent, appendectomy presents for feeling forgetful past few days, nauseous, right lower abdominal pain, 'I just don't feel good' and 'my daughter told me my eyes look yellow and I
better come to the hospital.'
Pt with HLD, HTN, CAD, CKD, IDDM takes Novolog 7U a.m. and at lunch, Lantus 6-7 U HS which she states she has been doing. She states her BS this am was 267. You She states she has not been eating or drinking much. States right lower abdominal pain
is 5/10, achy and sometimes sharp. Last BM yesterday. Denies fever. Denies vomiting/diarrhea. Denies nausea at this time.
Past History
Past History
ED Past Medical History: CAD, HTN, Hypercholesterolemia and IDDM
ED Past Surgical History: Appendectomy, Cardiac (Cardiac stents), and Orthopedic (Back surgery)
Social History
Tobacco: Smoker
Alcohol: None
Personal: Single
Living: with family
Employment: Not employed
Review of Systems
Review of Systems
Allergies reviewed?: Yes
All Other Systems: ROS reviewed and negative except as documented in HPI and ROS
Phy Exam
Physical Exam
Physical Exam:
GENERAL: No acute distress. A&Ox3. Month, year, president
CONSTITUTIONAL: Afebrile.
EYES: clear, conjunctivae normal
ENMT: Dry mucus membranes, Pharynx nl
RESPIRATORY: Regular respirations, nonlabored, lungs clear.
CARDIOVASCULAR: Regular rate and rhythm, no murmurs, no rubs.
GI: Soft, rotund, tender lower mid to right abdomen, no guarding, normal BS
MUSCULOSKELETAL: Moves with ease. Well perfused. No edema
SKIN: Warm, dry, pink
PSYCH: Normal mood and affect. Well kept, interactive and appropriate
NEUROLOGIC: Awake, alert and oriented. Speech clear. Cranial nerves II through XII intact. Strength equal throughout. No focal neurological deficits
Course
Orders/Labs/Results
Orders:
Orders
12/20/24 14:50
Complete Blood Count/With Diff Urgent
Comprehensive Metabolic Panel Urgent
Lipase Urgent
PTT Urgent
12/20/24 16:25
CT Abd/pelvis W Iv Cont Urgent
Comment:
Reason For Exam: pain right lower quadrant
0.9% Sodium Chloride 1000 ml [Nss] 1,000 ml IV BOLUS
12/20/24 18:08
Urinalysis Reflex To Culture Urgent
Date Specimen was Collected: 12/20/24
Time Specimen was Collected: 18:06
Urine Microscopic Reflex Cult Urgent
12/20/24 19:06
US Abdomen Complete/Upper Urgent
Comment:
Reason For Exam: R side abd pain, diabetic, CT w mildCBD distension
12/20/24 19:07
Morphine Sulfate 4 mg IV NOW STA
12/20/24 21:20
Insulin Human Regular [Novolin R] 8 units SC NOW STA
Abnormal Lab Results
12/20/24 12/20/24 12/20/24
14:50 18:08 18:58
RBC 3.25 L 10^6/uL
(4.20-5.40)
Hgb 9.9 L g/dL
(12.0-16.0)
Hct 29.3 L %
(37.0-47.0)
Sodium 131 L mmol/L
(135-145)
Potassium 5.2 H mmol/L
(3.5-5.1)
Carbon Dioxide 21 L mmol/L
(22-30)
BUN 26 H mg/dl
(7-17)
Creatinine 1.3 H mg/dL
(0.6-1.0)
Glucose 579 H* mg/dl
(70-99)
Urine Bacteria (Reflex) Few A
(Negative)
Urine Glucose 4+ A
(Negative)
Urine Albumin (Reflex) 2+ A
(Neg - Trace)
POC Glucose 384 H mg/dl
(70-99)
12/20/24
21:43
RBC
Hgb
Hct
Sodium
Potassium
Carbon Dioxide
BUN
Creatinine
Glucose
Urine Bacteria (Reflex)
Urine Glucose
Urine Albumin (Reflex)
POC Glucose 356 H mg/dl
(-99)
12/20/24 14:50
12/20/24 23:30
Vital Signs
Initial and Last Documented VS:
Initial Vital Signs
Temp Pulse Resp BP Pulse Ox
98.1 F 74 20 122/84 95
12/20/24 14:25 12/20/24 14:25 12/20/24 14:25 12/20/24 14:25 12/20/24 14:25
Last Documented Vital Signs
Temp Pulse Resp BP Pulse Ox
98.1 F 66 24 175/154 97
12/20/24 14:25 12/20/24 22:00 12/20/24 19:15 12/20/24 20:00 12/20/24 21:00
Physician Allergist Immunologist consulted with Physician
Physician Allergist Immunologist consulted with physician?: Yes
Name of Physician Consulted: Pratibha
MDM/Problems Addressed
Differential Diagnosis Includes:
Dehydration, DKA, hyper glycemia, hypoglycemia
MDM/Problems Addressed:
69-year-old female with history of CAD, HTN, HLD, IDDM, cardiac stent, appendectomy presents for feeling forgetful past few days, nauseous, right lower abdominal pain, 'I just don't feel good' and 'my daughter told me my eyes look yellow and I
better come to the hospital.'
Pt with HLD, HTN, CAD, CKD, IDDM takes Novolog 7U a.m. and at lunch, Lantus 6-7 U HS which she states she has been doing. She states her BS this am was 267. You She states she has not been eating or drinking much. States right lower abdominal pain
is 5/10, achy and sometimes sharp. Last BM yesterday. Denies fever. Denies vomiting/diarrhea. Denies nausea at this time.
A&O, pleasant, NAD, afebrile
CBC: No clinically significant abnormality, consistent with her chronic anemia
CMP: Consistent with her CKD 3, Glucose 579
Lipase WNL
7:00 PM: CT abdomen pelvis with IV contrast radiology report read: IMPRESSION:
Small gallbladder polyps or small noncalcified gallstones. Mild pericholecystic edema versus mild wall thickening in the fundal region.
Mild distention of the common bile duct measuring up to 8.[address] evidence of choledocholithiasis.
Probable small hepatic hemangioma.
Small calcific foci superimposed on the renal sinus, bilaterally, felt to represent vascular calcifications. There may be a small 2 mm nonobstructing calculus in the lower pole of the left kidney. Small bilateral renal cysts. No ureteral calculus.
No bladder calculus. No obstructive uropathy.
Mild colonic fecal burden. No bowel obstruction.
The appendix is absent.
Incidental mild tree in [place] interstitial opacity in the lateral right middle lobe, consistent with nonspecific bronchiolitis..
U/A no infection
Pt Glucose after 1L NSS: 384
No DKA
Will get US to evaluated GB. Pt states right abd pain is 6/10, pain med ordered
Case discussed with Dr. Mckinnon who agrees with plan.
9:00 p.m.
US radiology report read: Cholelithiasis. No sonographic evidence of acute cholecystitis. The common bile duct is top normal, 7 mm.
In further conversation with pt, she states she's had this abdominal pain for a couple of months, it bothers her mostly at night.
Abd is soft, no significant tenderness, no guarding.
Pt has been alert and oriented since arrival, mild forgetfulness such as not sure when her last BM was, thinks it was yesterday, can't remember when her next appointment is. She is oriented to month, year, president
Insulin Reg 8 U SQ ordered for glucose 384
Pt is stable for discharge
She has appointment in one week with her doctor.
Daughter arrived, all results and plan discussed with her. She is very knowledgeable about her mom's diabetes and meds. She will check her BS when she gets home, pt has sliding scale Insulin if needed.
Pt stable for discharge
*Pulse Oximetry
SaO2: 95
Oxygen Mode of Delivery: Room air
Patient hypoxic: no
*Critical Care Note
Total Time (30-74mins, 75-104mins- exclusive of procedures): Not Applicable
ED Attending Note
-
Portions of this chart may have been created with voice recognition software.� Occasional wrong word or��sound alike� substitutions may have occurred due to the inherent limitations of voice recognition software.
Discharge Plan
Departure
Patient Disposition: Home (Routine Discharge)
Date of Disposition: 12/20/24
Time of Disposition: 21:12
Patient with high blood pressure during this ER visit?: No
Condition: Fair
Discharge Problem:
Hyperglycemia due to diabetes mellitus, Abdominal pain, Mild dehydration
Instructions: Dehydration, Adult (DC), Type 2 diabetes (DC), High blood sugar in adults - ED (DC)
Prescriptions:
No Action
atorvastatin 40 mg tablet
40 mg PO QPM
clopidogrel 75 mg tablet
75 mg PO DAILY
pantoprazole 40 mg tablet,delayed release (DR/EC)
40 mg PO DAILY
insulin aspart U-100 [Novolog FlexPen U-100 Insulin] 100 unit/mL (3 mL) insulin pen
0 sliding scale dose SC MEALS
insulin glargine [Lantus Solostar U-100 Insulin] 100 unit/mL (3 mL) insulin pen
5 - 6 unit SC HS
nifedipine 30 mg Tablet Extended Release
30 mg PO BID 30 Days Qty: 60 0RF
thiamine HCl (vitamin B1) 100 mg Tablet
100 mg PO DAILY Qty: 30 0RF
acetaminophen [Tylenol] 325 mg tablet
650 mg PO Q6H PRN (Reason: Pain) 30 Days Qty: 30 0RF
metoprolol tartrate 25 mg Tablet
25 mg PO DAILY
amoxicillin-pot clavulanate 875-125 mg tablet
1 tab PO BID Qty: 13 0RF
Referrals:
Fede Carter DO [Family Provider] - Call in 1-3 days for appt
Activity Restrictions/Additional Instructions:
As we discussed, your blood sugar today was 579. After IV fluids it came down to 389.
Your last blood sugar was 384 and you were given Regular Insulin 8 units at 9:40 p.m.
Check your blood sugar at 11:30 p.m.
Your next Insulin dose should be given in the morning as usual.
Keep your appointment next week with your doctor.
Drink at least 6 eight ounce glasses of water daily.
Interventions
Interventions:
*Risk Screen - Suicide Last Done: 12/20/24 14:26
*General Assessment Last Done: 12/20/24 14:26
*Neglect/Abuse Screening Last Done: 12/20/24 14:26
*ED- Fall Risk Assessment Last Done: 12/20/24 16:25
*ED COVID-19 Vaccine History Last Done: 12/20/24 16:25
*ED Influenza Vaccine History Last Done: 12/20/24 16:25
*Nursing Disposition Last Done: 12/20/24 22:16
Discharge Date and Time
Discharge Date/Time: 12/20/24 22:21
Print Language: DIVEHI
[2024-12-20 16:09] VITALS: BP 110/82
[2024-12-20 16:21] VITALS: BMI 25.9
[2024-12-20] MEDS: NSS 1000 IV (16:31)
[2024-12-20 17:33] VITALS: BP 170/77
[2024-12-20 18:11] VITALS: BP 114/88
[2024-12-20 18:19] LABS: Urine Character Clear (Clear)
[2024-12-20 18:35] LABS: Urine Squamous Cell >30 /LPF (Few)
[2024-12-20 18:37] LABS: Urine Red Blood Cell 0-2 /HPF (0-2)
[2024-12-20 18:59] LABS: Glucose - Point of Care 384 mg/dl (70-99)
[2024-12-20 19:00] VITALS: BP 152/65
[2024-12-20] MEDS: MORPHINE SULFATE 4 MG IV (19:51)
[2024-12-20 20:00] VITALS: BP 175/154
[2024-12-20 21:44] LABS: Glucose - Point of Care 356 mg/dl (70-99)
[2024-12-20] MEDS: NOVOLIN R 8 UNITS SC (21:47)
== END 2024-12-20 22:21 | disposition home or self-care (01) ==
LOC: EMR 14:21
PROVIDERS: Emergency Medicine; Registered Nurse; Student in an Organized Health Care Education/Training Program; EMERGENCY PHYSICIAN Emergency Medicine; FAMILY PHYSICIAN Family Medicine
DX: E10.65 Type 1 diabetes mellitus with hyperglycemia (principal); R10.31 Right lower quadrant pain; E86.0 Dehydration; E10.22 Type 1 diabetes mellitus with diabetic chronic kidney disease; I12.9 Hypertensive chronic kidney disease with stage 1 through stage 4 chronic kidney disease, or unspecified chronic kidney disease; N18.30 Chronic kidney disease, stage 3 unspecified; I25.10 Atherosclerotic heart disease of native coronary artery without angina pectoris; E78.00 Pure hypercholesterolemia, unspecified; D64.9 Anemia, unspecified; F17.200 Nicotine dependence, unspecified, uncomplicated; Z79.4 Long term (current) use of insulin; Z95.5 Presence of coronary angioplasty implant and graft
CPT/HCPCS: 99284; 96374; 96361; 96372; 74177; 76700; 80053; 81003; 81015; 82962; 83690; 85025; 85730; Q9967